=== PATIENT | male | born 1930 | race Caucasian/White ===

== ENCOUNTER 2018-12-02 14:30 | Inpatient (IN) ==
[2018-12-02 14:57] LABS: BASO# 0.05 X1000 (0.0-0.2); BASO% 0.6 % (0.0-0.8); EOS# 0.19 X1000 (0.0-0.7); EOS% 2.4 % (0.0-10.0); HEMATOCRIT 31.3 % (42.0-52.0); HEMOGLOBIN 10.1 g/dL (14.0-18.0); IMM GRAN# 0.13 X1000 (0.0-0.04); IMM GRAN% 1.6 % (0.0-0.5); LYMPH# 1.52 X1000 (1.2-3.4); LYMPH% 18.8 % (20.5-51.1); MCH 29.1 PG (27-31); MCHC 32.3 g/dL (33-37); MCV 90.2 FL (81-99); MONO# 1.34 X1000 (0.11-0.59); MONO% 16.6 % (1.7-9.3); MPV 11.3 FL (7.4-10.4); NEUT# 4.85 X1000 (1.4-6.5); PLT 252 X1000 (130-400); RBC 3.47 XMIL (4.7-6.1); RDW 13.4 % (11.5-14.5); WBC 8.08 X1000 (4.8-10.8)
--- NOTE | 2018-12-02 15:05 | Diag Imaging Result Doc PS360 ---
EXAM: CT HEAD W/O CONTRAST HISTORY: possible CVA TECHNIQUE: CT head without contrast COMPARISON: 05/26/2018 FINDINGS: No parenchymal hemorrhage. No epidural or subdural hematoma. No subarachnoid hemorrhage. There is mild atrophy with chronic microvascular ischemic changes. No mass identified on this noncontrasted exam. No hydrocephalus. No sinus opacification. IMPRESSION: No hemorrhage. Mild atrophy with chronic microvascular ischemic changes. This exam was performed using automated exposure control, adjustment of mA or kV according to patient size, and/or use of iterative reconstruction technique. Electronically signed by Mele Parrish 12/02/2018 3:02 PM
--- NOTE | 2018-12-02 15:06 | Diag Imaging Result Doc PS360 ---
EXAM: CHEST-1 VIEW HISTORY: AMS work up TECHNIQUE: Chest single view COMPARISON: 05/26/2018 FINDINGS: The lungs are well expanded. The heart is not enlarged. Sternal wires are present. The vessels are not distended. There are no infiltrates. Tiny left pleural effusion versus pleural thickening. There is a calcified granuloma in the right costophrenic angle. IMPRESSION: No significant interval change. Electronically signed by Mele Parrish 12/02/2018 3:04 PM
[2018-12-02 15:21] LABS: ALBUMIN 3.4 g/dL (3.5-5.0); CALCIUM 9.1 mg/dL (8.8-10.2); CREATININE 3.1 mg/dL (0.7-1.2); POTASSIUM 4.6 mmol/L (3.5-5.1); TOTAL BILIRUBIN 0.4 mg/dL (0.20-1.00); TOTAL PROTEIN 6.1 g/dL (6.3-8.3)
[2018-12-02 15:26] LABS: INR 0.96; PROTIME 13.3 Seconds (11.0-16.0)
[2018-12-02 15:27] LABS: PTT 35.7 Seconds (22.3-41.8)
[2018-12-02 16:53] LABS: BILIRUBIN URINE NEGATIVE (NEGATIVE); BLOOD URINE NEGATIVE (NEGATIVE); GLUCOSE URINE NEGATIVE (NEGATIVE); KETONE URINE TRACE mg/dL (NEGATIVE); LEUKOCYTES URINE TRACE (NEGATIVE); NITRITE URINE NEGATIVE (NEGATIVE); PROTEIN URINE NEGATIVE (NEGATIVE); UROBILINOGEN URINE NORMAL
[2018-12-02 16:54] LABS: CLARITY CLEAR (CLEAR); COLOR YELLOW
[2018-12-02 17:01] LABS: URINE SOURCE CLEAN CATCH
[2018-12-02 17:03] LABS: URINE RBC <10 /HPF (<10); URINE WBC <10 /HPF (<10)
[2018-12-02 17:04] LABS: URINE BACTERIA 2+ /HFP; URINE CAST NONE SEEN /LPF; URINE CRYSTAL NONE SEEN /HPF; URINE EPITHELIAL CELLS >10 /HPF (<10); URINE YEAST NONE SEEN /HPF
--- NOTE | 2018-12-02 17:06 | EKG Report ---
Test Performed on : 12/02/2018 3:23:33 PM Test Reason : AMS Blood Pressure : / mmHG Vent. Rate : 065 BPM Atrial Rate : 065 BPM P-R Int : 184 ms QRS Dur : 132 ms QT Int : 456 ms P-R-T Axes : -17 071 -05 degrees QTc Int : 474 ms Normal sinus rhythm. 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
[2018-12-02 17:14] LABS: UR AMPHETAMINES QUAL NONE DETECTED (NONE DETECT); UR BARBITUATES QUAL NONE DETECTED (NONE DETECT); UR BENZODIAZEPIN QUAL NONE DETECTED (NONE DETECT); UR CANNABINOIDS QUAL NONE DETECTED (NONE DETECT); UR COCAINE QUAL NONE DETECTED (NONE DETECT); UR METHADONE QUAL NONE DETECTED (NONE DETECT); UR METHAMPHETAMINE QUAL NONE DETECTED (NONE DETECT); UR OPIATES QUAL PRESUMPTIVE POSITIVE (NONE DETECT); UR OXYCODONE QUAL NONE DETECTED (NONE DETECT); UR PCP QUAL NONE DETECTED (NONE DETECT); UR PROPOXYPHENE QUAL NONE DETECTED (NONE DETECT); UR TCA QUAL NONE DETECTED (NONE DETECT)
--- NOTE | 2018-12-02 18:14 | PROVIDER DOCUMENTATION ---
This chart was entered by Alexa Boss Scribe, acting as scribe for Candi Amaya MD. HPI-Neurological Disorder - General Chief Complaint: Altered Mental Status Stated Complaint: CONFUSED Time Seen by Provider: 12/02/18 14:38 Source: patient, family (son) Unable to obtain history due to:: altered Allergies/Adverse Reactions: Patient Allergies Allergy/AdvReac Type Severity Reaction Status Date / Time No Known Allergies Allergy Verified 05/26/18 10:46 Home Medications: Home Medication List Medication Instructions Recorded Confirmed Last Taken Type Febuxostat [Uloric] 40 mg PO DAILY 03/24/13 05/26/18 03/28/14 08:00 History Folic Acid/Multivits-Min [Macular 0.5 mg PO DAILY 03/24/13 05/26/18 03/01/14 08: 00 History Vitamin Tablet] Mv,Fe/FA/D3/Om-3/Dha/Epa/Fish 1 each PO DAILY 03/24/13 05/26/18 03/01/14 08:00 History [Prorenal Qd Softgel] Nebivolol [Bystolic] 5 mg PO DAILY 03/24/13 05/26/18 03/28/14 08:00 History Prednisone 10 mg PO DAILY 03/24/13 05/26/18 03/28/14 08:00 History Amlodipine Besylate 10 mg PO DAILY 05/26/18 05/26/18 Unknown History Aspirin [Aspir-Low] 81 mg PO DAILY 05/26/18 05/26/18 Unknown History Cyanocobalamin/Folic Acid [Vitamin 1 each PO DAILY 05/26/18 05/26/18 Unknown History C00-Goiir Acid Tablet] Furosemide [Lasix] 40 mg PO DAILY 05/26/18 05/26/18 Unknown History Iron,Carbonyl [Iron] 65 mg PO Q3DAYS 05/26/18 05/26/18 Unknown History Triamcinolone 0.1% Cr [Kenalog 1 applicatn TOP TID 05/26/18 05/26/18 Unknown History 0.1% Cream] - History of Present Illness-Neuro Nature of Presenting Problem: 88 yowm presents to the ed with c/o confusion for intermittently for 1 week. pt has had moments of unstable gait and needing a walker at times in this week as well. pt on exam is tearful and anxious. pt denies VERDIN, pt has no facial droop, generalized weakness and can follow all commands on exam Severity: reports: mild Onset/Duration: reports: 1 week ago Timing: reports: intermittent Context: reports: other (confusion). denies: impaired speech, paresthesia, facial droop Character of Altered Mental Status: reports: disoriented, confused, agitated, trouble concentrating Any recent trauma/injury?: reports: none Character of Deficits: reports: new weakness, decreased ability to walk (has to use a walker at times). denies: altered sensation, impaired speech, impaired swallowing, decreased ability to stand New weakness or altered sensation location:: reports: general (diffuse) Cognitive Baseline: alert, oriented x3 Gait Baseline: walks without assistance Associated Symptoms: reports: decreased ability to walk or stand, confusion, trouble walking, weakness. denies: short of breath, headache, dizziness, fever/ chills, nausea, numbness in legs/feet, paresthesia, seizures, sleepy, slurred speech Similar Symptoms Previously?: No Recently seen or treated by another doctor?: No Review of Systems - Adult - REVIEW OF SYSTEMS - ADULT ROS:: ROS per family (son at bedside) Constitutional: reports: no symptoms reported Eyes: denies: blurred vision, double vision Ears, Nose, Mouth & Throat: reports: no symptoms reported Cardiovascular: denies: chest pain, palpitations Respiratory: denies: cough, shortness of breath, wheezing Gastrointestinal: denies: abdominal pain, diarrhea, nausea, vomiting Genitourinary: reports: no symptoms reported Musculoskeletal: denies: back pain, neck pain Integumentary: reports: no symptoms reported Neurological: reports: see HPI, other (confusion). denies: dizziness/vertigo, headache/migraines, loss of balance, numbness, paresthesia, slurred speech, syncope, tremors Psychiatric: reports: no symptoms reported Endocrine: reports: no symptoms reported Hematologic/Lymphatic: reports: no symptoms reported Allergic/Immunologic: reports: no symptoms reported All Other Systems: Reviewed and Negative Past History - Adult - PAST MEDICAL HISTORY-ADULT Review of Records: reports: Old Records Reviewed, Nursing Assessment Review, Medications Reviewed, Social history reviewed & non-contributory. Major Childhood Illnesses: reports: denies history Cardiovascular: reports: CAD, HTN Respiratory: reports: denies history Gastrointestinal: reports: denies history Genitourinary: reports: kidney disease, prostate cancer Musculoskeletal: reports: denies history Neurological: reports: denies history Psychiatric: reports: denies history Endocrine/Immune: reports: denies history Other Conditions: reports: denies history - PRIOR SURGERIES/PROCEDURES Surgical/Procedure History: reports: CABG, orthopedic (extremity) (bilateral shoulder,elbow), other (vasectomy,TURP, kidney sx) - IMMUNIZATION STATUS Childhood Immunizations: See Nurse Assessment Flu Vaccine: See Nurse Assessment - FAMILY HISTORY Family History: reviewed, not pertinent - SOCIAL HISTORY Smoking: quit greater than 1 year Substance Use: alcohol Alcohol Use Frequency: occasionally Number of drinks per typical drinking period:: 1 drink Living Situation: family Physical Exam- Neurological - Physical Exam-Neuro Initial Vital Signs Reviewed: Yes General Appearance: alert, mild distress, anxious, slow to respond Eye Exam: bilateral eye: normal inspection, PERRL, EOMI HENMT: moist mucous membranes, normal ENT inspection Head Injury: no evidence of injury Neck: non-tender, full range of motion, supple, normal inspection Respiratory: chest non-tender, lungs clear, normal breath sounds Cardiovascular: normal peripheral pulses, regular rate, rhythm Abdominal Exam: normal bowel sounds, non tender, soft Lymphatic: no adenopathy Extremity: normal inspection, normal capillary refill, pelvis stable. 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 negative: facial droop, facial paresthesias, facial weakness, gaze palsy Coordination/Gait: abnormal gait Motor/Sensory: no motor deficit, no sensory deficit, no pronator drift, other ( generalized weakness) Neurologic: motor weakness (generalized). negative: facial droop, focal weakness Integumentary: normal color, normal turgor, warm/dry, erythema (BUE) Psych/Mental Status: normal thought content, normal thought process, oriented x 3, anxious, tearful - Glascow Coma Scale Best Eye Response: (4) open spontaneously Best Verbal Response: (5) oriented Best Motor Response: (6) obeys commands Total Glascow Score: 15 Progress - PLAN OF CARE/RESULTS Progress/Plan/Lab Results: Vital Signs - 8 hr 12/02/18 14:32 12/02/18 15:23 12/02/18 15:29 Temperature 98.1 F Pulse Rate 79 65 63 Respiratory Rate 17 20 23 Blood Pressure 145/37 111/48 111/48 O2 Sat by Pulse Oximetry 98 100 91 L Laboratory Results - last 24 hr 12/02/18 12/02/18 12/02/18 14:38 14:38 14:38 WBC 8.08 RBC 3.47 L Hgb 10.1 L Hct 31.3 L MCV 90.2 MCH 29.1 MCHC 32.3 L RDW Std Deviation 13.4 Plt Count 252 MPV 11.3 H Immature Gran % (Auto) 1.6 H Neut % (Auto) 60.0 Lymph % (Auto) 18.8 L [place] % (Auto) 16.6 H Eos % (Auto) 2.4 Baso % (Auto) 0.6 Immature Gran # (Auto) 0.13 H Neut # (Auto) 4.85 Lymph # (Auto) 1.52 [place] # (Auto) 1.34 H Eos # (Auto) 0.19 Baso # (Auto) 0.05 PT INR PTT (Actin FS) Sodium 141 Potassium 4.6 Chloride 103 Carbon Dioxide 22 L Anion Gap 16 BUN 69 H Creatinine 3.1 H Estimated GFR/1.73 m2 19 BUN/Creatinine Ratio 22 Glucose 96 POC Glucose Calculated Osmolality 301 Calcium 9.1 Total Bilirubin 0.40 AST 20 ALT 14 Alkaline Phosphatase 87 Troponin T 0.114 H Total Protein 6.1 L Albumin 3.4 L Globulin 3.0 Albumin/Globulin Ratio 1.0 Urine Source Urine Color Urine Clarity Urine pH Ur Specific [place] Urine Protein Urine Ketones Urine Blood Urine Nitrite Urine Bilirubin Urine Urobilinogen Urine Microscopic RBC Urine WBC Urine Microscopic WBC Ur Epithelial Cells Urine Crystals Urine Bacteria Urine Casts Urine Yeast Urine Glucose Urine Opiates Screen Ur Oxycodone Screen Urine Methadone Screen U Propoxyphene Qual Ur Barbituates Screen Ur Tricyclics Screen Ur Phencyclidine Scrn Ur Amphetamines Screen U Methamphetamines Scrn U Benzodiazepines Scrn Urine Cocaine Screen U Cannabinoids Screen 12/02/18 12/02/18 12/02/18 14:38 15:27 16:30 WBC RBC Hgb Hct MCV MCH MCHC RDW Std Deviation Plt Count MPV Immature Gran % (Auto) Neut % (Auto) Lymph % (Auto) [place] % (Auto) Eos % (Auto) Baso % (Auto) Immature Gran # (Auto) Neut # (Auto) Lymph # (Auto) [place] # (Auto) Eos # (Auto) Baso # (Auto) PT 13.3 INR 0.96 PTT (Actin FS) 35.7 Sodium Potassium Chloride Carbon Dioxide Anion Gap BUN Creatinine Estimated GFR/1.73 m2 BUN/Creatinine Ratio Glucose POC Glucose 95 Calculated Osmolality Calcium Total Bilirubin AST ALT Alkaline Phosphatase Troponin T Total Protein Albumin Globulin Albumin/Globulin Ratio Urine Source CLEAN CATCH Urine Color YELLOW Urine Clarity CLEAR Urine pH 5.0 Ur Specific [place] 1.010 Urine Protein NEGATIVE Urine Ketones TRACE Urine Blood NEGATIVE Urine Nitrite NEGATIVE Urine Bilirubin NEGATIVE Urine Urobilinogen NORMAL Urine Microscopic RBC <10 Urine WBC TRACE A Urine Microscopic WBC <10 Ur Epithelial Cells >10 A Urine Crystals NONE SEEN Urine Bacteria 2+ Urine Casts NONE SEEN Urine Yeast NONE SEEN Urine Glucose NEGATIVE Urine Opiates Screen Ur Oxycodone Screen Urine Methadone Screen U Propoxyphene Qual Ur Barbituates Screen Ur Tricyclics Screen Ur Phencyclidine Scrn Ur Amphetamines Screen U Methamphetamines Scrn U Benzodiazepines Scrn Urine Cocaine Screen U Cannabinoids Screen 12/02/18 16:30 WBC RBC Hgb Hct MCV MCH MCHC RDW Std Deviation Plt Count MPV Immature Gran % (Auto) Neut % (Auto) Lymph % (Auto) [place] % (Auto) Eos % (Auto) Baso % (Auto) Immature Gran # (Auto) Neut # (Auto) Lymph # (Auto) [place] # (Auto) Eos # (Auto) Baso # (Auto) PT INR PTT (Actin FS) Sodium Potassium Chloride Carbon Dioxide Anion Gap BUN Creatinine Estimated GFR/1.73 m2 BUN/Creatinine Ratio Glucose POC Glucose Calculated Osmolality Calcium Total Bilirubin AST ALT Alkaline Phosphatase Troponin T Total Protein Albumin Globulin Albumin/Globulin Ratio Urine Source Urine Color Urine Clarity Urine pH Ur Specific [place] Urine Protein Urine Ketones Urine Blood Urine Nitrite Urine Bilirubin Urine Urobilinogen Urine Microscopic RBC Urine WBC Urine Microscopic WBC Ur Epithelial Cells Urine Crystals Urine Bacteria Urine Casts Urine Yeast Urine Glucose Urine Opiates Screen PRESUMPTIVE POSITIVE A Ur Oxycodone Screen NONE DETECTED Urine Methadone Screen NONE DETECTED U Propoxyphene Qual NONE DETECTED Ur Barbituates Screen NONE DETECTED Ur Tricyclics Screen NONE DETECTED Ur Phencyclidine Scrn NONE DETECTED Ur Amphetamines Screen NONE DETECTED U Methamphetamines Scrn NONE DETECTED U Benzodiazepines Scrn NONE DETECTED Urine Cocaine Screen NONE DETECTED U Cannabinoids Screen NONE DETECTED Orders Category Date Time Status Cardiac Monitoring DIRECTED Care 12/02/18 14:39 Active Finger Stick Blood Sugar (ED) DIRECTED Care 12/02/18 14:39 Active Misc. NRSG Communication Order DIRECTED Care 12/02/18 14:39 Active Saline Loc NOW Care 12/02/18 14:39 Active CHEST-1 VIEW [RAD] Stat Exams 12/02/18 14:[address] HEAD W/O CONTRAST [CT] Stat Exams 12/02/18 14:39 Completed CBC WITH ELECTRONIC DIFF [HEME] Stat Lab 12/02/18 14:38 Completed COMPREHENSIVE METABOLIC PANEL [CHEM] Stat Lab 12/02/18 14:38 Completed PROTIME WITH INR [COAG] Stat Lab 12/02/18 14:38 Completed PTT [COAG] Stat Lab 12/02/18 14:38 Completed TROPONIN T Stat Lab 12/02/18 14:[address] W/POSS RFLX CULT [URINALYSIS] Stat Lab 12/02/18 16:30 Completed URINE CULTURE [RM] Routine Lab 12/02/18 17:[address] S[address]EN [address] Stat Lab 12/02/18 16:30 Completed EKG [EKG] Stat Ther 12/02/18 14:39 Draft Transfer/Admit Order [TRANSFER] Routine Transfer 12/02/18 16:49 Ordered Result Diagrams: 12/02/18 14:38 12/02/18 14:38 - REASSESSMENT Reassessment #1 Time Reassessed: 14:49 (pt has no confusion on exam but son at bedside sts last week has had many moments of confusion and weakness. son sts it comes and goes) Status: unchanged Reassessment #2 Time Reassessed: 15:28 Status: improving Reassessment Comment: resting in bed Reassessment #3 Time Reassessed: 16:15 (dr amaya at bedside) Status: unchanged - EKG 1 Time of EKG reading by physician:: 15:23 EKG Read and Signed by:: Candi Amaya EKG Interpretation (*Must complete 3 of following elements*): Abnormal Rate: 65 Rhythm: nsr [place]: normal QRS: RBB PA Interval: normal ST Wave: normal Comments: infwerior infarct, age undetermined - XRAY 2 XRAY: Bilateral XRAY Study: Chest (EXAM: CHEST-1 VIEW HISTORY: AMS work up TECHNIQUE: Chest single view COMPARISON: 05/26/2018 FINDINGS: The lungs are well expanded. The heart is not enlarged. Sternal wires are present. The vessels are not distended. There are no infiltrates. Tiny left pleural effusion versus pleural thickening. There is a calcified granuloma in the right costophrenic angle. IMPRESSION: No significant interval change. Electronically signed by Mele Parrish 12/02/2018 3:04 PM 12/02/18 1504 Interpreting Physician: Mele Parrish MD Dictated Date/Time: 12/02/18 1502 cc: Candi Amaya MD; Fransico Stover MD) - CT/MRI 1 CT Study: Head (EXAM: CT HEAD W/O CONTRAST HISTORY: possible CVA TECHNIQUE : CT head without contrast COMPARISON: 05/26/2018 FINDINGS: No parenchymal hemorrhage. No epidural or subdural hematoma. No subarachnoid hemorrhage. There is mild atrophy with chronic microvascular ischemic changes. No mass identified on this noncontrasted exam. No hydrocephalus. No sinus opacification. IMPRESSION: No hemorrhage. Mild atrophy with chronic microvascular ischemic changes. This exam was performed using automated exposure control, adjustment of mA or kV according to patient size, and/or use of iterative reconstruction technique. Electronically signed by Mele Parrish 12/02/2018 3:02 PM 1502 Interpreting Physician: Mele Parrish MD Dictated Date/Time: 12/02/18 1459 cc: Candi Amaya MD; Fransico Stover MD) - CONSULTS/PCP/HOSPITALIST Notification #1 *Consult/PCP/Hospitalist*: hospitalist dr quiros Time Discussed: 16:58 Reason/Comments: dr quiros is at bedside #2 Consult: dr stover Time Discussed: 17:34 Reason/Comments: confusion and weakness Consult Disposition: Admit Departure - Departure Date of Disposition Decision: 12/02/18 Time of Disposition Decision: 16:18 DIAGNOSIS: Renal insufficiency syndrome, Dehydration, Elevated troponin Altered mental state Qualifiers: Altered mental status type: unspecified Qualified Code(s): R41.82 - Altered mental status, unspecified Disposition: ADMITTED INPATIENT 09 Certified Medical Emergency: Emergent Condition: Stable Referrals and Follow-Ups: Fransico Stover MD [Primary Care Provider] - - Critical Care Note This patient required my direct & personal management of CC.: Yes Total Time (mins): 38 Critical Care Statement: This patient required my direct personal management to treat or rule out processes, the absence of which, could potentiallly result in sudden, clinically significant life or limb threatening deterioration. Attestation - Physician/ HERMELINDA Attestation Patient care was provided by Advanced Practice Provider:: No The physician spent face to face time with patient:: Yes Advanced Practice Provider documentation review:: Supervising physician onsite and consulted in the evaluation and care of this patient. The physician did have a face to face encounter with the patient. 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) Motor Function-right arm: 0-Normal Motor Function-left le-Normal Motor Function-right le-Normal Limb Ataxia(pdtayr-fakh-aeghnr, or heel to reeves): 0-No Ataxia Sensory(pin prick to face,arms,trunk,legs-compare side/side): 0-No Ataxia Best Language(name item/read sentence.Ex-Down to Earth): 0-No Aphasia Dysarthria(Pt read words or say words Ex.Mama,Tip-Top,Thanks: 0-Normal Articulation Extinction and Inattention: 0-Normal NIH Total Score: 0 This chart was documented by the indicated scribe, (Alexa Boss Scribe) and accurately reflects the services I performed and decisions made by me, Candi Amaya MD, as attested by the provider's signature.
[2018-12-02] MEDS ORDERED: VANCOMYCIN 1 GM/NS 1 GM/250 ML IVPB IV ONE (18:22)
[2018-12-02] MEDS ORDERED: FLU VACCINE IM ONE (22:18)
[2018-12-03] MEDS ORDERED: LASIX PO SCH (09:00)
[2018-12-03] MEDS: ULORIC PO SCH (09:47)
[2018-12-03] MEDS: BYSTOLIC PO SCH (09:48)
[2018-12-03] MEDS: PREDNISONE PO SCH (09:48)
[2018-12-03] MEDS: ASPIRIN EC PO SCH (09:48)
[2018-12-03] MEDS: TYLENOL WITH CODEINE #3 PO PRN ×2 (09:48→23:27)
[2018-12-03] MEDS: NORVASC PO SCH (09:48)
[2018-12-03] MEDS ORDERED: NS 500 ML IV SCH (14:00)
[2018-12-03 16:37] LABS: HEMATOCRIT 30.4 % (42.0-52.0); HEMOGLOBIN 9.8 g/dL (14.0-18.0); MCH 29.4 PG (27-31); MCHC 32.2 g/dL (33-37); MCV 91.3 FL (81-99); MPV 10.8 FL (7.4-10.4); RBC 3.33 XMIL (4.7-6.1); RDW 13.4 % (11.5-14.5); WBC 6.1 X1000 (4.8-10.8)
[2018-12-03 17:07] LABS: CALCIUM 8.8 mg/dL (8.8-10.2); CREATININE 2.4 mg/dL (0.7-1.2); POTASSIUM 4.7 mmol/L (3.5-5.1)
--- NOTE | 2018-12-03 23:00 | PROGRESS NOTE ---
DATE: 12/03/2018 SUBJECTIVE: The patient states that he feels much better today. He does not feel that he has been confused. He has actually stood at the bedside up today without assistance and he did state that his appetite was back and he was able to eat. OBJECTIVE: Vital Signs: Blood pressure is 138/51 with a heart rate of 58, respirations 20, temperature 97.6 degrees oral with room air saturations 98-99. Cardiovascular: Regular rate and rhythm. S1 and S2 are appreciated. Pulmonary: Breath sounds are clear with no increased work of breathing. Gastrointestinal: Abdomen is soft, nontender, nondistended with bowel sounds in all 4 quadrants. Neurologic: He is alert. He is oriented. He is cooperative. He has 5/5 strength to bilateral arms and legs. LABS: WBC is 6.1 with hemoglobin 9.8, hematocrit 30.4 and platelets of 240,000. Sodium is 136, potassium 4.7, BUN 59, creatinine 2.4 with a glucose of 222. Troponin was 0.101. EKG revealed a right bundle branch block at a rate of 65. ASSESSMENT AND PLAN: 1. Acute kidney injury on chronic kidney disease. Looks like the patient has a baseline creatinine of 1.8 to 1.9 over the last 2 years. We will continue with gentle IV hydration, give him saline at 100 mL an hour. We will hold his Lasix and Uloric and any other renal toxic medications. We will renal dose as appropriate. 2. Dehydration. At present, the patient is -280. We will as stated above start saline at 100 mL/h. 3. Elevated troponins. This is very likely secondary to his acute kidney injury. The patient has had no chest pain. I did discuss the patient with Dr. Jacob Samano in Cardiology. We will get an another set of cardiacs in the morning along with an EKG. We will get an echocardiogram in the morning. Consult Cardiology. If the patient has chest pain tonight, we will get stat cardiacs, get an EKG and nurses will call Dr. Lovell. 4. History of hypertension. Blood pressures have been in the 120-140/40-50 range. We will continue his amlodipine and his Bystolic. 5. History of coronary artery disease. As stated above, we will continue his aspirin. We will continue neuro checks. Further treatments pending hospital course. Dictated by MEHDI Ventura for Ashwin Damon MD This chart was documented by, MEHDI Ventura and accurately reflects the services performed, treatment plan and medical decisions as attested by the providers signature Ashwin Damon MD. cc: MEHDI Ventura MD Michael Putman, MD
[2018-12-04 06:55] LABS: BASO# 0.02 X1000 (0.0-0.2); BASO% 0.3 % (0.0-0.8); EOS# 0.09 X1000 (0.0-0.7); EOS% 1.4 % (0.0-10.0); HEMATOCRIT 29.3 % (42.0-52.0); HEMOGLOBIN 9.3 g/dL (14.0-18.0); IMM GRAN% 1.5 % (0.0-0.5); LYMPH# 0.72 X1000 (1.2-3.4); LYMPH% 10.9 % (20.5-51.1); MCH 28.6 PG (27-31); MCHC 31.7 g/dL (33-37); MCV 90.2 FL (81-99); MONO# 0.92 X1000 (0.11-0.59); MPV 11.1 FL (7.4-10.4); NEUT# 4.73 X1000 (1.4-6.5); NEUT% 71.9 % (42.2-75.2); PLT 268 X1000 (130-400); RBC 3.25 XMIL (4.7-6.1); RDW 13.3 % (11.5-14.5); WBC 6.58 X1000 (4.8-10.8)
[2018-12-04 07:18] LABS: CALCIUM 8.8 mg/dL (8.8-10.2); CREATININE 2.1 mg/dL (0.7-1.2); POTASSIUM 3.9 mmol/L (3.5-5.1); TOTAL BILIRUBIN 0.3 mg/dL (0.20-1.00)
[2018-12-04] MEDS: NORVASC PO SCH (09:45)
[2018-12-04] MEDS: BYSTOLIC PO SCH (09:45)
[2018-12-04] MEDS: PREDNISONE PO SCH (09:45)
[2018-12-04] MEDS: ULORIC PO SCH (09:45)
[2018-12-04] MEDS: ASPIRIN EC PO SCH (09:45)
[2018-12-04] MEDS ORDERED: VANCOMYCIN 1 GM/NS 1 GM/250 ML IVPB IV ONE (16:00)
[2018-12-04 16:01] VITALS: BP 137/43
--- NOTE | 2018-12-04 17:08 | HISTORY AND PHYSICAL ---
HISTORY OF PRESENT ILLNESS: He was admitted on 12/02/2018 through the emergency room because of a confused issue. He has no dementia but has been somewhat confused lately as far as where he is. He is a regular patient of mine. He is on Uloric, Bystolic, prednisone, amlodipine, aspirin, furosemide 40 daily, with supplemental B12. The patient's son brought him in. He has been confused off and on for a week. He has had some movement problems with an unsteady gait, needing a walker at times as well. The patient on exam was anxious and tearful. Denies headache. No facial droop. Generalized weakness. Can follow all commands on exam. This has been going on for a week. He has trouble concentrating. No focal neurological deficits. He has generalized weakness, and the walker is a new thing for him. He denies any altered sensation, impaired speech or swallowing disorders. He is usually oriented x3. Walks without assistance. He denies any shortness of breath or headaches, fevers, chills, nausea, symptoms of a fever. He was admitted for confusion. REVIEW OF SYSTEMS: The patient's son is adding most of the details. He denies change in significant weight gain, weight loss, fever or chills. Eyes: The patient has not complained any of visual issues. Ears, nose and throat: No sinusitis, pharyngitis or otitis. Cardiovascular: He denies any chest pain or palpitations. He has some chronic edema. He has chronic renal failure. Respiratory: He denies cough, shortness of breath or wheezing. Gastrointestinal: Denies abdominal pain, diarrhea, nausea, vomiting, melena, hematochezia. Genitourinary: No dysuria, hematuria, polyuria or pyuria. Musculoskeletal: Denies back pain or neck pain. He frequently has gout but is not afflicted with this at this time. Skin: He has senile purpura only. Neurologic: Confused but no focal deficits identified. Psychiatric: No symptoms of same. Endocrine: No history of any impaired temperature sensation. Hematologic: No bleeding or clotting disorders. Allergies: No asthma, wheezing, hay fever, eczema. PAST MEDICAL HISTORY: The patient has hypertension, status post coronary artery bypass graft. He has a history of prostate cancer. History of kidney disease with chronic creatinines in the high 2's and low 3's. He sees Dr. Lozano in [place] as his urologist. PAST SURGICAL HISTORY: He is status post CABG. He has had shoulder surgery bilaterally for an ulnar release. He has had a vasectomy, TURP and kidney symptoms, no kidney surgery though. SOCIAL HISTORY: He lives with his . He is a distant ex-smoker. He drinks liquor occasionally, but he typically only drinks one drink at that. PHYSICAL EXAMINATION: VITAL SIGNS: Temperature was 98, pulse 63, respiratory rate 23, blood pressure 111/48, O2 saturation was 91%. HEENT: Head was normocephalic. Eyes, ears, nose and throat were negative. Head with no sign of injury. NECK: Supple. Bounding carotids without thyromegaly or lymphadenopathy. Midline trachea. RESPIRATORY: Chest nontender. Bilaterally clear breath sounds. CARDIOVASCULAR: Normal peripheral pulses. Regular rate and rhythm. ABDOMEN: Normal bowel sounds. Soft. No hepatosplenomegaly. No CVA tenderness. EXTREMITIES: Negative for cyanosis, clubbing or edema. He had no lymphadenopathy. CUSTOMS AND BORDER PROTECTION INSPECTOR: He had no neurologic deficits other than a bit unsteady on his gait. He was felt to have a Lizeth score of 15. DIAGNOSTIC DATA: They did labs which included a white count of 8808, hematocrit 31.3, platelet count 252. BUN was 69, creatinine 3.1, sodium 141, potassium 4.6, chloride 103, CO2 is 22. Estimated GFR was 19. BUN to creatinine ratio was 22. Glucose was 96. Calculated osmolality was 301. Calcium 9.1. Total bilateral 0.4, AST of 20, ALT of 14, alkaline phosphatase 187. His troponin was elevated at 0.114 which is compatible with his renal disease. Total protein 6.1, albumin 3.4, globulin 3. His PT was 35.7. Random glucose 95. Urine with 1.010 specific gravity, pH of 5, lots of epithelial cells, 2+ bacteria, otherwise negative. Presumably contaminated urine. He was positive for opiate screening. He is on opiates. It was felt that we would put him in, rehydrate him and see if he responded. Chest with no significant interval change. EKG was abnormal. He had a heart rate of 65 of NSR. [place] normal. He had a right bundle branch block. ST segments were otherwise negative. He was admitted for rehydration and follow his elevated troponin and renal insufficiency. cc: Fransico Stover MD
--- NOTE | 2018-12-04 17:48 | PROGRESS NOTE ---
HISTORY OF PRESENT ILLNESS: This is an 88-year-old patient of mine with hypertension, chronic renal failure and history of recurrent gout and chronic anemia who had been recently hospitalized because of some intermittent spells of confusion not knowing where he particularly was. Today, his laboratory shows a white count of 6,580, hematocrit 29.3, platelet count 268. Differential is relatively normal. His metabolic profile--sodium 141, potassium 3.9, chloride 105, CO2 23, BUN 57, creatinine 2.2, estimated GFR 30, BUN and creatinine ratio is 27. Glucose 116, calcium 8.8, total bilirubin 0.3, AST 19, ALT 12, alk phos 73, CK 96, troponin is always elevated but now it is not elevated as much as before at 0.58. Albumin was 3, total protein 6. His clean catch urine has no growth. He recognizes me, recognizes that he is in the hospital. PHYSICAL EXAMINATION: Vital signs: Temperature 97.4, pulse 51, respiratory rate 18 and blood pressure 128/43. I talked to the pharmacy about giving him another dose of vancomycin to finish up treating what appeared to be a little bit of [erysipelas *]of the shins. DISPOSITION: We will discharge him to follow up in the office. cc: Fransico Stover MD MTDD
--- NOTE | 2018-12-04 21:21 | CONSULTATION ---
DATE OF CONSULTATION: 12/04/2018 IMPRESSION: 1. Slightly elevated troponins with no significant rise or fall on serial values. I suspect this is very much related to renal dysfunction as he has had no chest pain and has had no acute changes on ECG. 2. Recent confusion which seems to have improved. 3. Acute on chronic renal dysfunction. 4. Atherosclerotic coronary disease with history of previous coronary bypass grafting, aortic valve replacement with bioprosthesis. 5. Hypertension. 6. Prostate cancer. RECOMMENDATIONS: 1. Echocardiography. 2. Continue medical management of patient's coronary atherosclerosis unless clear evidence of coronary instability. Current slight elevation in troponins is likely related to patient's renal dysfunction. Given his age, it would be best to manage him medically unless he has compelling symptoms to pursue invasive evaluation that occur in the face of medical management. HISTORY: This 88-year-old white male with past history of atherosclerotic coronary disease, previous coronary bypass grafting with aortic valve replacement with bioprosthesis, chronic kidney disease, and gout was admitted recently with confusion. He is felt to be dehydrated and he is receiving intravenous hydration. He manifests evidence of acute on chronic renal dysfunction. Serial troponins have been obtained and are slightly elevated but do not demonstrate a rise and fall. He has had no chest pain whatsoever. He relates he is feeling better today. PAST MEDICAL HISTORY: 1. Hypertension. 2. Atherosclerotic coronary disease and previous coronary bypass grafting with aortic valve replacement with bioprosthesis. 3. Gout. 4. Chronic kidney disease. PAST SURGICAL HISTORY: Also includes bilateral shoulder surgeries, bilateral elbow surgery, previous vasectomy, transurethral resection of prostate. ALLERGIES: No known drug allergies. MEDICATIONS PRIOR TO ADMISSION: As listed. SOCIAL HISTORY: He is and lives with his . He no longer smokes. FAMILY HISTORY: Positive for coronary disease. REVIEW OF SYSTEMS: Pulmonary: Negative. Gastrointestinal: Negative. Constitutional: Negative. Remainder review of systems negative/noncontributory with 14 total systems reviewed. PHYSICAL EXAMINATION: General: This is a pleasant, elderly white male in no distress. Vital signs: Blood pressure 137/43, heart rate 53 and regular, oxygen saturation 100% on room air. HEENT: Extraocular movements intact. Mucous membranes moist. Neck: Supple without jugular venous distention. There are no carotid bruits. Chest: Clear to auscultation bilaterally. Cardiac Exam: Reveals a regular rate and rhythm without appreciable murmur or gallop. Abdomen: Soft, nontender. Bowel sounds audible. Extremities: Without edema. Neurologic: Reveals him to be alert and fully oriented. Speech is fluent. Moves all 4 extremities equally well. 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 LABORATORY DATA: Includes a white blood cell count 6.58, hematocrit 29.3, hemoglobin 9.3, platelet count 268,000, sodium 141, potassium 3.9, chloride 105, carbon dioxide 23, BUN 57, creatinine 2.1, glucose 116. Initial troponin T 0.114, followup troponin T 0.098, 0.099, 0.101, and 0.058. cc: MD Fransico Cerda MD
--- NOTE | 2018-12-05 10:13 | ECHO REPORT ---
ORDER DATE: 12/04/2018 INTERPRETING PHYSICIAN: Dr. Damico CLINICAL INDICATIONS: Patient with possible myocardial infarction status post aortic valve replacement. M-MODE MEASUREMENTS: Left ventricle end diastole: 4.0 cm. Left ventricle end systole: 3.4 cm. Posterior wall: 1.3 cm. Interventricular septum: 1.3 cm. Left atrium: 4.1 cm. Aortic root: 4.4 cm. SUMMARY OF 2-DIMENSIONAL IMAGING: The left ventricular function is normal. Ejection fraction 60-65%. No wall motion abnormality is noted. Dense calcification of the mitral annulus. Color flow mapping indicates mild degree of regurgitation. Pulse wave Doppler of mitral inflow shows mild reversal of the E/A ratio. Ratio 0.86. Tissue Doppler of septal and lateral mitral annulus averages 4 cm per second. There is impaired left ventricular relaxation. The aortic valve is a prosthetic valve. Showed maximum gradient of 22 mmHg. Mean gradient is 11 mmHg. Indicates normal function. Tricuspid valve shows mild degree of regurgitation. Inferior vena cava at the upper limits of normal. Pulmonary pressure 44 mmHg. Pulmonic valve is normal. Color flow mapping unremarkable. There is no pericardial effusion, mass and no thrombus. SUMMARY: This study shows 1. Excellent left ventricular systolic function. 2. Normal LV function and prosthetic aortic valve. 3. Impaired left ventricular relaxation. 4. Mild degree of pulmonary hypertension. Clinical correction recommended. cc: MD Vandana Jama CRNP Michael Putman, MD
== END 2018-12-04 18:50 | disposition home or self-care (01) | DRG 684 ==
LOC: P.ED 14:30 → P.MEDSURG 20:54
PROVIDERS: ADMIT Internal Medicine; ATTEND Internal Medicine
CPT/HCPCS: 70450; 71010; 71045; 80048; 80053; 80101; 80104; 80301; 80305; 80307; 80324; 80345; 80346; 80353; 80358; 80361; 80365; 81001; 82550; 82948; 83992; 84484; 85025; 85027; 85610; 85730; 87088; 93005; 93306; 96365; 99285; 99291; A9270; C8929; G0431; G0434; G0477; G0479; G0480; J3370; J7040; J7506; J7512; Q9957; XXXXX

== ENCOUNTER 2018-12-08 13:04 | Inpatient (IN) ==
[2018-12-08 13:52] LABS: BASO# 0.15 X1000 (0.0-0.2); BASO% 1.6 % (0.0-0.8); EOS# 0.19 X1000 (0.0-0.7); EOS% 2.1 % (0.0-10.0); HEMATOCRIT 30.1 % (42.0-52.0); HEMOGLOBIN 9.7 g/dL (14.0-18.0); IMM GRAN# 0.59 X1000 (0.0-0.04); IMM GRAN% 6.4 % (0.0-0.5); LYMPH# 1.12 X1000 (1.2-3.4); LYMPH% 12.2 % (20.5-51.1); MCHC 32.2 g/dL (33-37); MCV 90.1 FL (81-99); MONO# 1.34 X1000 (0.11-0.59); MONO% 14.6 % (1.7-9.3); MPV 10.2 FL (7.4-10.4); NEUT# 5.79 X1000 (1.4-6.5); NEUT% 63.1 % (42.2-75.2); PLT 349 X1000 (130-400); RBC 3.34 XMIL (4.7-6.1); RDW 13.6 % (11.5-14.5); WBC 9.18 X1000 (4.8-10.8)
--- NOTE | 2018-12-08 13:57 | Diag Imaging Result Doc PS360 ---
EXAM: CHEST-PORTABLE HISTORY: ams TECHNIQUE: Chest single view COMPARISON: 12/02/2018 FINDINGS: Poor inspiratory effort. Sternal wires are present. The heart is borderline mildly prominent. No vascular distention. There is a granuloma in the right lung base. No change in the tiny left pleural effusion versus pleural thickening. The overall appearance of the chest is similar to the prior study. IMPRESSION: Stable exam. Electronically signed by Mele Parrish 12/08/2018 1:55 PM
[2018-12-08] MEDS ORDERED: TYLENOL PO ONE (14:04)
[2018-12-08 14:14] LABS: INR 0.99; PROTIME 13.6 Seconds (11.0-16.0); PTT 31.6 Seconds (22.3-41.8)
[2018-12-08 14:15] LABS: ALBUMIN 3.5 g/dL (3.5-5.0); CALCIUM 9.1 mg/dL (8.8-10.2); CREATININE 3.2 mg/dL (0.7-1.2); POTASSIUM 4.5 mmol/L (3.5-5.1); TOTAL BILIRUBIN 0.4 mg/dL (0.20-1.00); TOTAL PROTEIN 5.7 g/dL (6.3-8.3)
[2018-12-08 14:15] LABS: BE -2.4 mmoll (-3.0-3.0); BLOOD TYPE ARTERIAL; METHB 0.7 % (0.0-1.5); O2(CT) 15.5 mL/dL (15.0-23.0); PCO2(98.6) 32 mmHg (35-45); PO2(98.6) 76 mmHg (60-100); SAMPLE BLOOD; SAO2 95.7 % (95.0-100.0); THB 11.7 g/dL (11.5-17.4); pH(98.6) 7.43 (7.35-7.45)
[2018-12-08 14:26] LABS: ALLEN TEST NO; MODALITY ROOM AIR
[2018-12-08] MEDS ORDERED: NS 1,000 ML IV ONE ×2 (14:27→15:16)
--- NOTE | 2018-12-08 15:20 | EKG Report ---
Test Performed on : 12/08/2018 1:29:46 PM Test Reason : ams Blood Pressure : / mmHG Vent. Rate : 068 BPM Atrial Rate : 068 BPM P-R Int : 200 ms QRS Dur : 140 ms QT Int : 464 ms P-R-T Axes : -13 040 -14 degrees QTc Int : 493 ms Sinus rhythm. with frequent premature ventricular complexes. Right bundle branch block Inferior infarct (cited on or before 24-MAR-2013) Abnormal ECG When compared with ECG of 02-DEC-2018 15:23, (Unconfirmed) premature ventricular complexes. are now present Unconfirmed Result
[2018-12-08] MEDS ORDERED: TYLENOL WITH CODEINE #3 PO PRN (16:43)
[2018-12-08] MEDS ORDERED: NS 1,000 ML IV SCH (16:43)
--- NOTE | 2018-12-08 17:31 | HISTORY AND PHYSICAL ---
PRIMARY CARE PHYSICIAN: Dr. Fransico Stover. CHIEF COMPLAINT: Increased confusion. HISTORY OF PRESENTING ILLNESS: This is an 88-year-old male, who presents to [facility] ER with his son stating that he has had increased confusion since being discharged from the hospital on 12/04/2018, when he was also admitted for increased confusion and was found to be dehydrated. Today his laboratory data showed a BUN of 67 and a creatinine of 3.2. It is noted when he was discharged on the twenty-fifth his creatinine was 2.1. The son states that the patient continues to take his diuretic, but has not been eating or drinking. He is also noted to have a bump in his troponin at 0.120. It has been elevated in the past. Cardiology saw him on that last admission and documented that it was most likely trending up due to the related renal dysfunction due to the fact that he had no chest pain and no acute changes on his EKG. So, we will admit him to the hospital for further evaluation and treatment. PAST MEDICAL HISTORY: Hypertension, prostate cancer, chronic kidney disease in which he sees Dr. Lozano in [place] as his urologist. PAST SURGICAL HISTORY: He has had a CABG, shoulder surgery bilaterally, and ulnar release, a vasectomy and TURP. FAMILY HISTORY: Reviewed and noncontributory. SOCIAL HISTORY: Currently lives with his . He is an ex smoker. Drinks liquor occasionally and denies any illicit drug use. ALLERGIES: He has no known drug allergies. HOME MEDICATIONS: He takes Tylenol #3 one p.o. q. 8 hours p.r.n., amlodipine 10 mg p.o. daily, aspirin 81 mg p.o. daily, Uloric 40 mg p.o. daily will be held, Lasix 40 mg p.o. daily will be held, Bystolic 20 mg p.o. daily and prednisone 10 mg p.o. daily. LABORATORY AND X-RAY DATA: Showed a white blood cell count of 9.18, hemoglobin 9.7, hematocrit 30.1, platelets 349. PT and INR of 13.6 and 0.99. ABG showed a pH of 7.43, pCO2 of 32, PO2 76, bicarbonate 23 and this was on room air. Sodium of 143, potassium 4.5, chloride 104, CO2 20. BUN of 67, creatinine 3.2, glucose 104. Creatine kinase of 70, troponin 0.120. Plasma lactate of 2. Chest x-ray showed a stable exam. EKG showed sinus rhythm with frequent PVCs at 68. REVIEW OF SYSTEMS: He denies any fever, chills, blurred vision, dizziness, chest pain, coughing, shortness of breath. Denied any abdominal pain, constipation, diarrhea, burning or hurting with urination. PHYSICAL EXAMINATION: VITAL SIGNS: Showed a temperature of 98.3 degrees, pulse 67, respirations 13, blood pressure 116/81. GENERAL: This is an 88-year-old male, who is lying in bed and answers questions appropriately. Son also at bedside to give information and review of medical record. HEET: Normocephalic, atraumatic. Normal ENT inspection. Oropharynx and nares are clear. EYES: Pupils are equal, round, reactive to light and accommodation. Extraocular movements are intact. NECK: Normal inspection, normal range of motion. LUNGS: Clear to auscultation bilaterally with equal lung expansion and chest wall movement. HEART: With regular rate and rhythm. No murmurs, rubs, or gallops. ABDOMEN: Soft, nontender, nondistended. Bowel sounds are present x4 quadrants. MUSCULOSKELETAL: He has 3/5 strength x4 extremities. NEUROLOGICAL: The cranial nerves 2-12 are grossly intact. ASSESSMENT: 1. Altered mental status, multifactorial. 2. Acute on chronic kidney disease stage IV. 3. Elevated troponin, most likely secondary to elevated creatinine without the presence of chest pain or changes in electrocardiogram. 4. Generalized weakness. PLAN: He is being admitted to the medical unit. Placed on healthy heart diet. Normal saline at 125 mL an hour. We will continue his home medications as previously identified. Recheck a CBC, BMP in the a.m. Again, we will hold his diuretic and his Uloric. Further orders after being seen by attending. Dictated by MEHDI Ledesma for Eleuterio Connor MD cc: MEHDI Ledesma MD Michael Putman, MD
--- NOTE | 2018-12-08 20:06 | HISTORY AND PHYSICAL ---
ADDENDUM: The patient presents with confusion although he looks better this evening. I cannot really appreciate significant confusion but reportedly he is not at baseline for himself. He does have chronic renal failure. He sees Dr. Lozano in [place] for that. Apparently he has had a diminished p.o. intake with anorexia and he has significant heart history. In any case he was found to have acute on chronic renal failure at this point, he is usually a stage 3 and now he is stage 4 it looks like. He does have also mild elevation in his troponin so will have to take a peek at that. His exam is really unremarkable. He has nothing focal neurologically and will have to see how things look. We will continue his regular medications, pursue renal failure workup and reevaluate in the next 24 hours . As far as the encephalopathy that seems to be possibly related to the azotemia. He certainly may have some underlying dementia that may not be completely well characterized. He is not on any particular medication for that. He is on low-dose prednisone but that is a chronic medication for him so we will avoid nephrotoxic drugs and follow closely. This is a [id number] encounter note with Kari Mejia. cc: MD Dr. Jolanta Barrera
[2018-12-08] MEDS: NS 1,000 ML IV SCH (20:14)
[2018-12-08 22:33] LABS: UR CREAT RANDOM 83.6 mg/dL (14-26); UR PROT RANDOM 6.5 mg/dL
[2018-12-09] MEDS: NS 1,000 ML IV SCH (04:06)
[2018-12-09] MEDS ORDERED: BENADRYL PO PRN (05:54)
[2018-12-09 07:53] LABS: BASO# 0.07 X1000 (0.0-0.2); EOS# 0.31 X1000 (0.0-0.7); EOS% 4.5 % (0.0-10.0); HEMATOCRIT 31.4 % (42.0-52.0); HEMOGLOBIN 9.8 g/dL (14.0-18.0); IMM GRAN# 0.42 X1000 (0.0-0.04); IMM GRAN% 6.1 % (0.0-0.5); LYMPH# 1.03 X1000 (1.2-3.4); MCH 28.7 PG (27-31); MCHC 31.2 g/dL (33-37); MCV 92.1 FL (81-99); MONO# 1.21 X1000 (0.11-0.59); MONO% 17.7 % (1.7-9.3); MPV 10.6 FL (7.4-10.4); NEUT# 3.81 X1000 (1.4-6.5); NEUT% 55.7 % (42.2-75.2); PLT 344 X1000 (130-400); RBC 3.41 XMIL (4.7-6.1); RDW 13.8 % (11.5-14.5); WBC 6.85 X1000 (4.8-10.8)
[2018-12-09 08:05] LABS: CALCIUM 8.8 mg/dL (8.8-10.2); CREATININE 2.4 mg/dL (0.7-1.2)
[2018-12-09] MEDS: BYSTOLIC PO SCH (09:29)
[2018-12-09] MEDS: ASPIRIN EC PO SCH (09:30)
[2018-12-09] MEDS: PREDNISONE PO SCH (09:30)
[2018-12-09] MEDS: NORVASC PO SCH (09:30)
[2018-12-09 09:37] LABS: ANISOCYTOSIS 2+; EOS 2 % (1-10); LYMPHS 9 % (21-51); MICROCYTOSIS OCCASIONAL; MONO 8 % (1-9); SEGS 81 % (42-75)
--- NOTE | 2018-12-09 16:22 | Diag Imaging Result Doc PS360 ---
EXAM: US RENAL 2 (RETROPER) COMPLETE HISTORY: aury/arf TECHNIQUE: Real-time transabdominal evaluation of the kidneys and bladder. COMPARISON: None. FINDINGS: Right kidney: 4.9 centimeters in length. Renal echotexture is hyperechoic with cortical thinning consistent with medical renal disease.. There is no hydronephrosis, nephrolithiasis, or focal renal mass. Left kidney: 12.2 centimeters in length. Renal echotexture is hyperechoic with cortical thinning consistent with medical renal disease. There is no hydronephrosis, nephrolithiasis, or focal renal mass. Bladder: No focal abnormality is appreciated. IMPRESSION: Bilateral medical renal disease. Atrophic right kidney. Electronically signed by Manisha Rondon 12/09/2018 4:20 PM
--- NOTE | 2018-12-09 17:01 | PROGRESS NOTE ---
DATE: 12/09/2018 SUBJECTIVE: The patient has no major complaints. He would like to go home. OBJECTIVE: Blood pressure 123/44, heart rate 61, respiratory rate 18, temperature 98.1 degrees, and 95% on room air.Cardiovascular: Regular. Pulmonary: Bilateral breath sounds. Clear to auscultation. GI: Soft, nontender, and nondistended. Bowel sounds are positive. LABORATORY DATA: White count 6, hemoglobin and hematocrit 9 and 31, and platelets 344,000. BUN and creatinine are down to 54 and 2.4 which is close to baseline. Troponin is 0.113. They have been elevated previously, which is likely related to his age and renal dysfunction. His echocardiogram was really not that impressive. PROBLEM LIST: 1. Encephalopathy. To me that seems better. I do not appreciate he is that confused, but his family is insistent that he is confused. 2. We are going to repeat head CT, and see if there is anything going on there different. 3. Acute kidney injury. He is usually around stage 3, and is back to baseline. I am going to continue fluids for another 24 hours and we will see how he does. 4. Hypertension appears to be stable on current medications. DISPOSITION: I anticipate discharge probably in the next 24 hours. cc: MD Fransico Barrera MD
--- NOTE | 2018-12-09 17:29 | Diag Imaging Result Doc PS360 ---
CT HEAD W/O CONTRAST - 12/09/2018 INDICATION: encephalopathy COMPARISON: 12/02/2018 FINDINGS: Stable atrophy and chronic microvascular disease. No intracranial mass or hemorrhage. The skull is intact. The sinuses are clear. IMPRESSION: No acute disease or change from prior. This exam was performed using automated exposure control, adjustment of mA or kV according to patient size, and/or use of iterative reconstruction technique Electronically signed by Lamin Pérez 12/09/2018 5:26 PM
--- NOTE | 2018-12-10 01:12 | PROVIDER DOCUMENTATION ---
This chart was entered by Yoli Caro Scribe, acting as scribe for Candi Yates MD. HPI-Neurological Disorder - General Chief Complaint: Altered Mental Status Stated Complaint: confusion Time Seen by Provider: 12/08/18 13:09 Source: family (son) Allergies/Adverse Reactions: Patient Allergies Allergy/AdvReac Type Severity Reaction Status Date / Time No Known Allergies Allergy Verified 12/08/18 13:19 Home Medications: Home Medication List Medication Instructions Recorded Confirmed Last Taken Type Prednisone 10 mg PO DAILY 03/24/13 12/08/18 03/28/14 08:00 History Amlodipine Besylate 10 mg PO DAILY 05/26/18 12/08/18 Unknown History Aspirin [Aspir-Low] 81 mg PO DAILY 05/26/18 12/08/18 Unknown History Furosemide [Lasix] 40 mg PO DAILY 05/26/18 12/08/18 Unknown History Acetaminophen with Codeine 1 tab PO Q8H PRN PRN 12/02/18 12/08/18 Unknown History [Acetaminophen-Cod #3 Tablet] Febuxostat [Uloric] 40 mg PO DAILY 12/02/18 12/08/18 Unknown History Nebivolol HCl [Bystolic] 20 mg PO DAILY 12/02/18 12/08/18 Unknown History - History of Present Illness-Neuro Nature of Presenting Problem: Patient is a 88 year old male who presents to the ED via EMS with confusion. Patient's son states confusion started this morning. Patient's son denies history of dementia. Patient denies headache and chest pain. Severity: reports: mild Onset/Duration: reports: this morning Timing: reports: still present Context: reports: other (AMS) Character of Altered Mental Status: reports: confused Any recent trauma/injury?: reports: none Gait Baseline: walks without assistance Associated Symptoms: reports: fever/chills (chills) Similar Symptoms Previously?: Yes Recently seen or treated by another doctor?: Yes Review of Systems - Adult - REVIEW OF SYSTEMS - ADULT ROS:: ROS per family (son) Constitutional: reports: chills. denies: fever, fatique Eyes: reports: no symptoms reported Ears, Nose, Mouth & Throat: reports: no symptoms reported Cardiovascular: reports: no symptoms reported Respiratory: reports: no symptoms reported Gastrointestinal: reports: no symptoms reported Genitourinary: reports: no symptoms reported Musculoskeletal: reports: no symptoms reported Integumentary: reports: no symptoms reported Neurological: reports: other (AMS - confused). denies: dizziness/vertigo, headache/migraines, numbness, seizure, syncope Psychiatric: reports: no symptoms reported Endocrine: reports: no symptoms reported Hematologic/Lymphatic: reports: no symptoms reported Allergic/Immunologic: reports: no symptoms reported All Other Systems: Reviewed and Negative Past History - Adult - PAST MEDICAL HISTORY-ADULT Review of Records: reports: Nursing Assessment Review, Medications Reviewed, Social history reviewed & non-contributory. Major Childhood Illnesses: reports: denies history Cardiovascular: reports: CAD, HTN Respiratory: reports: denies history Gastrointestinal: reports: denies history Obstetrical/Gynecological: reports: denies history Genitourinary: reports: kidney disease, prostate cancer Musculoskeletal: reports: denies history Neurological: reports: denies history Psychiatric: reports: denies history Endocrine/Immune: reports: denies history Other Conditions: reports: denies history - PRIOR SURGERIES/PROCEDURES Surgical/Procedure History: reports: CABG, orthopedic (extremity) (bilateral shoulder,elbow), other (vasectomy,TURP, kidney sx) - IMMUNIZATION STATUS Childhood Immunizations: See Nurse Assessment Flu Vaccine: See Nurse Assessment - FAMILY HISTORY Family History: reviewed, not pertinent - SOCIAL HISTORY Smoking: denies Substance Use: denies Physical Exam- Neurological - Physical Exam-Neuro Initial Vital Signs Reviewed: Yes General Appearance: alert, no apparent distress Head Injury: no evidence of injury Neck: non-tender, normal inspection Respiratory: chest non-tender, lungs clear, normal breath sounds Cardiovascular: normal peripheral pulses, regular rate, rhythm Abdominal Exam: normal bowel sounds, non tender, soft Extremity: other (chronic venous stasis bilaterally) Integumentary: normal color, normal turgor, warm/dry Psych/Mental Status: other (confused) Progress - PLAN OF CARE/RESULTS Progress/Plan/Lab Results: Laboratory Results - last 24 hr 12/09/18 12/09/18 12/09/18 00:40 06:27 06:27 WBC 6.85 RBC 3.41 L Hgb 9.8 L Hct 31.4 L MCV 92.1 MCH 28.7 MCHC 31.2 L RDW Std Deviation 13.8 Plt Count 344 MPV 10.6 H Immature Gran % (Auto) 6.1 H Neut % (Auto) 55.7 Lymph % (Auto) 15.0 L [place] % (Auto) 17.7 H Eos % (Auto) 4.5 Baso % (Auto) 1.0 H Immature Gran # (Auto) 0.42 H Neut # (Auto) 3.81 Lymph # (Auto) 1.03 L [place] # (Auto) 1.21 H Eos # (Auto) 0.31 Baso # (Auto) 0.07 Segmented Neutrophils 81 H Lymphocytes 9 L Monocytes 8 Eosinophils 2 Anisocytosis 2+ Microcytosis OCCASIONAL Sodium 144 Potassium 4.0 Chloride 110 H Carbon Dioxide 21 L Anion Gap 13 BUN 54 H Creatinine 2.4 H Estimated GFR/1.73 m2 26 BUN/Creatinine Ratio 23 Glucose 97 Calculated Osmolality 302 Calcium 8.8 Creatine Kinase Troponin T 0.113 H 12/09/18 06:27 WBC RBC Hgb Hct MCV MCH MCHC RDW Std Deviation Plt Count MPV Immature Gran % (Auto) Neut % (Auto) Lymph % (Auto) [place] % (Auto) Eos % (Auto) Baso % (Auto) Immature Gran # (Auto) Neut # (Auto) Lymph # (Auto) [place] # (Auto) Eos # (Auto) Baso # (Auto) Segmented Neutrophils Lymphocytes Monocytes Eosinophils Anisocytosis Microcytosis Sodium Potassium Chloride Carbon Dioxide Anion Gap BUN Creatinine Estimated GFR/1.73 m2 BUN/Creatinine Ratio Glucose Calculated Osmolality Calcium Creatine Kinase 108 Troponin T Orders Category Date Time Status Admit - [facility] Routine AdmDCTranf 12/08/18 15:16 Active Admit Patient To Inpatient Status Routine AdmDCTranf 12/09/18 14:30 Active Activity - Up Ad Shyla ORDERED Care 12/08/18 15:16 Active Cardiac Monitoring DIRECTED Care 12/08/18 13:20 Completed Finger Stick Blood Sugar (ED) DIRECTED Care 12/08/18 13:20 Completed Hurt Cath Insertion ORDERED Care 12/08/18 14:04 Inactive Neurological Check PRN Care 12/08/18 15:16 Active Oxygen Therapy- ED Nursing DIRECTED Care 12/08/18 13:20 Active Saline Loc NOW Care 12/08/18 13:20 Active Vital Signs Order Q 8-HR ASSESS Care 12/08/18 15:16 Active Z-Document. for Tele Applied ORDERED Care 12/08/18 15:17 Inactive Heart Healthy Diet Diet 12/08/18 16:43 Active CHEST-PORTABLE [RAD] Stat Exams 12/08/18 13:20 Completed US RENAL 2 (RETROPER) COMPLETE [US] Routine Exams 12/09/18 06:00 Completed ABG [RESP] Routine Lab 12/08/18 13:44 Completed BASIC METABOLIC PANEL [CHEM] Routine Lab 12/09/18 06:27 Completed CBC WITH DIFF [HEME] Routine Lab 12/09/18 06:27 Completed CBC WITH ELECTRONIC DIFF [HEME] Stat Lab 12/08/18 13:38 Completed CK PROFILE [SP CHEM] Q4H Lab 12/08/18 20:20 Completed CK PROFILE [SP CHEM] Q4H Lab 12/09/18 06:27 Completed CK PROFILE [SP CHEM] Stat Lab 12/08/18 13:38 Completed COMPREHENSIVE METABOLIC PANEL [CHEM] Stat Lab 12/08/18 13:38 Completed LACTATE, PLASMA [CHEM] Stat Lab 12/08/18 13:38 Completed PROTIME WITH INR [COAG] Stat Lab 12/08/18 13:38 Completed PTT [COAG] Stat Lab 12/08/18 13:38 Completed TROPONIN T Q4H Lab 12/08/18 20:20 Completed TROPONIN T Q4H Lab 12/09/18 00:40 Completed TROPONIN T Stat Lab 12/08/18 13:38 Completed UR CREAT RANDOM [URCHEM] Routine Lab 12/08/18 21:55 Completed UR PROT RANDOM [URCHEM] Routine Lab 12/08/18 21:55 Completed UR SODIUM [URCHEM] Routine Lab 12/08/18 21:55 Completed 0.9% Sodium Chloride Inj [Ns] 1,000 ml Med 12/08/18 16:43 Discontinued IV 125 mls/hr 0.9% Sodium Chloride Inj [Ns] 1,000 ml Med 12/08/18 15:16 Discontinued IV 200 mls/hr 0.9% Sodium Chloride Inj [Ns] 1,000 ml Med 12/08/18 20:00 Discontinued IV 75 mls/hr 0.9% Sodium Chloride Inj [Ns] 1,000 ml Med 12/08/18 14:27 Discontinued IV 999 mls/hr Acetaminophen [Tylenol] Med 12/08/18 14:04 Discontinued 1,000 mg PO NOW ONE Acetaminophen with Codeine [Tylenol with Codeine #3] Med 12/08/18 16:43 Active 1 each PO Q8H PRN PRN Amlodipine [Norvasc] Med 12/09/18 09:00 Active 10 mg PO DAILY Aspirin EC Med 12/09/18 09:00 Active 81 mg PO DAILY Diphenhydramine [Benadryl] Med 12/09/18 05:54 Discontinued 50 mg PO Q6H PRN PRN Nebivolol [Bystolic] Med 12/09/18 09:00 Active 20 mg PO DAILY Prednisone Med 12/09/18 09:00 Active 10 mg PO DAILY Altered Mental Status Stat Oth 12/08/18 13:19 Ordered Telemetry [OM.EQ] Routine Oth 12/08/18 15:16 Active EKG [EKG] Stat Ther 12/08/18 13:20 Draft Transfer/Admit Order [TRANSFER] Routine Transfer 12/08/18 15:15 Completed Result Diagrams: 12/09/18 06:27 12/09/18 06:27 - EKG 1 Time of EKG reading by physician:: 13:29 EKG Read and Signed by:: Candi Yates EKG Interpretation (*Must complete 3 of following elements*): Abnormal Rate: 68 Rhythm: sinus rhythm with frequent premature ventricular complexes [place]: normal QRS: RBB ST Wave: normal Comments: inferior infarct, age undetermined - XRAY 1 XRAY Study: Chest Impression: See EMR Report (EXAM: CHEST-PORTABLE HISTORY: ams TECHNIQUE: Chest single view COMPARISON: 12/02/2018 FINDINGS: Poor inspiratory effort. Sternal wires are present. The heart is borderline mildly prominent. No vascular distention. There is a granuloma in the right lung base. No change in the tiny left pleural effusion versus pleural thickening. The overall appearance of the chest is similar to the prior study. IMPRESSION: Stable exam. Electronically signed by Mele Parrish 12/08/2018 1:55 PM [id number] Interpreting Physician: Mele Parrish MD Dictated Date/Time: 12/08/18 0027 cc: Candi Yates MD;) - CONSULTS/PCP/HOSPITALIST Notification #1 *Consult/PCP/Hospitalist*: Dr. Connor Time Discussed: 15:10 Reason/Comments: Dr. Yates consulted with Dr. Connor about patient Consult Disposition: Will see in ED, Admit Departure - Departure Date of Disposition Decision: 12/08/18 Time of Disposition Decision: 15:10 DIAGNOSIS: Acute on chronic kidney failure Disposition: ADMITTED INPATIENT 09 Certified Medical Emergency: Emergent Condition: Fair - Critical Care Note This patient required my direct & personal management of CC.: No Attestation - Physician/ HERMELINDA Attestation Patient care was provided by Advanced Practice Provider:: No The physician spent face to face time with patient:: Yes Advanced Practice Provider documentation review:: Supervising physician onsite and consulted in the evaluation and care of this patient. The physician did have a face to face encounter with the patient. This chart was documented by the indicated scribe, (Yoli Caro Scribe) and accurately reflects the services I performed and decisions made by me, Candi Yates MD, as attested by the provider's signature.
[2018-12-10 06:10] VITALS: BP 135/53
[2018-12-10 07:26] LABS: BASO# 0.04 X1000 (0.0-0.2); BASO% 0.7 % (0.0-0.8); EOS# 0.13 X1000 (0.0-0.7); EOS% 2.2 % (0.0-10.0); IMM GRAN# 0.21 X1000 (0.0-0.04); IMM GRAN% 3.6 % (0.0-0.5); LYMPH# 0.66 X1000 (1.2-3.4); LYMPH% 11.4 % (20.5-51.1); MCH 28.4 PG (27-31); MCV 91.5 FL (81-99); MONO# 0.85 X1000 (0.11-0.59); MONO% 14.7 % (1.7-9.3); MPV 10.3 FL (7.4-10.4); NEUT# 3.89 X1000 (1.4-6.5); NEUT% 67.4 % (42.2-75.2); PLT 313 X1000 (130-400); RBC 3.17 XMIL (4.7-6.1); RDW 13.3 % (11.5-14.5); WBC 5.78 X1000 (4.8-10.8)
[2018-12-10 07:34] LABS: POTASSIUM 4.1 mmol/L (3.5-5.1)
[2018-12-10 08:23] LABS: ANISOCYTOSIS 2+; EOS 2 % (1-10); LYMPHS 12 % (21-51); MONO 13 % (1-9); SEGS 73 % (42-75)
[2018-12-10] MEDS ORDERED: FLU VACCINE IM ONE (09:00)
[2018-12-10] MEDS: ASPIRIN EC PO SCH (10:01)
[2018-12-10] MEDS: NORVASC PO SCH (10:01)
[2018-12-10] MEDS: PREDNISONE PO SCH (10:01)
[2018-12-10] MEDS: BYSTOLIC PO SCH (10:01)
--- NOTE | 2018-12-11 00:58 | PROGRESS NOTE ---
DATE: 12/10/2018 Day of discharge he is sitting up in bed. He looks fine. Discussion about him being confused, but he is alert oriented times 4, person, place, time. He knows who the president is. He does not seem like he has issues. His BUN and creatinine are down to 46 and 2, which is pretty close to baseline. Hemoglobin and hematocrit are stable. I feel he is stable to go home. Follow up with Dr. Stover. I think he has an appointment next week and then follow up with Dr. Lozano as well, his primary clinical research nurse. This is a [id number] encounter note with Kari Mejia. cc: MD Fransico Barrera MD
--- NOTE | 2018-12-11 01:29 | DISCHARGE SUMMARY ---
ADMISSION DATE: 12/08/2018 DISCHARGE DATE: 12/10/2018 PRIMARY CARE PHYSICIAN: Dr. Stover. ADMISSION DIAGNOSES: 1. Altered mental status, multifactorial. 2. 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 3. Elevated troponin likely secondary to elevated creatinine without the presence of chest pain or changes in EKG. 4. Generalized weakness. DISCHARGE DIAGNOSES: 1. Encephalopathy, improved but continues to remain somewhat confused and there may be some underlying dementia present. 2. An acute on chronic kidney disease, back to baseline at stage III. 3. Hypertension. SUMMARY OF FINDINGS: This is an 88-year-old male who presented to the emergency room with increased confusion since he was discharged on 12/04/2018 where he was also admitted for increased confusion, but was found to be dehydrated. His labs showed the day of arrival a BUN of 67 and a creatinine of 3.2 which was elevated from when he was discharged at 2.1. The son states that he had been taking his diuretic but not eating and drinking. He was also noted to have a bump in his troponin at 0.120, most likely secondary to the increase in his creatinine. We did trend those and did not find any further significant findings. They did go down minimally. His creatinine today is down to 2.0. He remains to have some confusion at times. We did repeat a head CT on 12/09/2018 that showed no acute disease or change from prior so it is felt that he can safely be discharged home today. He will have Home Health services. DISCHARGE MEDICATIONS: Tylenol #3 one p.o. q.8 hours p.r.n., amlodipine 10 mg p.o. daily, aspirin 81 mg p.o. daily, Bystolic 20 mg p.o. daily, prednisone 10 mg p.o. daily, Uloric 40 mg p.o. daily and Lasix 40 mg p.o. daily. FOLLOW-UP: He will need to follow up with his primary care physician in 1 to 2 weeks, call the office for an appointment. All discharge instructions have been reviewed with the patient and he verbalizes understanding. TIME: 33 minute discharge. Dictated by MEHDI Ledesma for Eleuterio Connor MD cc: MEHDI Ledesma MD Michael Putman, MD
== END 2018-12-10 15:06 | disposition home health service (06) | DRG 684 ==
LOC: P.MEDSURG 13:04 → P.ED 13:04 → SUATTDRO 15:56
PROVIDERS: ADMIT Internal Medicine; ATTEND Internal Medicine
CPT/HCPCS: 70450; 71010; 71045; 76770; 80048; 80053; 82550; 82570; 82805; 82948; 83605; 84156; 84300; 84484; 85025; 85610; 85730; 90686; 93005; 96360; 99285; A9270; J7030; J7506; J7512; XXXXX

== ENCOUNTER 2019-06-08 18:24 | Inpatient (IN) ==
--- NOTE | 2019-06-08 18:16 | EKG Report ---
Test Performed on : 06/08/2019 5:24:12 PM Test Reason : weakness Blood Pressure : / mmHG Vent. Rate : 083 BPM Atrial Rate : 441 BPM P-R Int : 000 ms QRS Dur : 140 ms QT Int : 402 ms P-R-T Axes : 000 115 006 degrees QTc Int : 472 ms Atrial fibrillation. Right bundle branch block Left posterior fascicular block Bifascicular block Cannot rule out Inferior infarct (cited on or before 24-MAR-2013) Abnormal ECG When compared with ECG of 08-DEC-2018 13:29, Atrial fibrillation. has replaced Sinus rhythm. Questionable change in initial forces of Inferior leads Unconfirmed Result
[2019-06-08 18:20] LABS: BASO# 0.03 X1000 (0.0-0.2); BASO% 0.2 % (0.0-0.8); EOS# 0.16 X1000 (0.0-0.7); HEMATOCRIT 37.2 % (42.0-52.0); HEMOGLOBIN 11.8 g/dL (14.0-18.0); IMM GRAN# 0.13 X1000 (0.0-0.04); IMM GRAN% 0.8 % (0.0-0.5); LYMPH# 1.22 X1000 (1.2-3.4); LYMPH% 7.4 % (20.5-51.1); MCH 28.9 PG (27-31); MCHC 31.7 g/dL (33-37); MCV 91.2 FL (81-99); MONO# 2.26 X1000 (0.11-0.59); MONO% 13.7 % (1.7-9.3); MPV 11.3 FL (7.4-10.4); NEUT# 12.65 X1000 (1.4-6.5); NEUT% 76.9 % (42.2-75.2); PLT 218 X1000 (130-400); RBC 4.08 XMIL (4.7-6.1); RDW 15.2 % (11.5-14.5); WBC 16.45 X1000 (4.8-10.8)
[2019-06-08 18:22] LABS: PROTIME 13.7 Seconds (11.0-16.0)
[2019-06-08 18:23] LABS: PTT 29.6 Seconds (22.3-41.8)
[~2019-06-08 18:24] MED LIST: MAXIPIME 2 GM in NS 100 ML IV ONE; NS 500 ML IV ONE; VANCOMYCIN 1 GM/NS 1 GM/250 ML IVPB IV ONE
[2019-06-08 18:37] LABS: ALBUMIN 4.3 g/dL (3.5-5.0); CALCIUM 8.6 mg/dL (8.8-10.2); CREATININE 2.4 mg/dL (0.7-1.2); MAGNESIUM 2.3 mg/dL (1.5-2.7); POTASSIUM 4.1 mmol/L (3.5-5.1); TOTAL BILIRUBIN 0.7 mg/dL (0.20-1.00); TOTAL PROTEIN 6.4 g/dL (6.3-8.3)
--- NOTE | 2019-06-08 18:45 | Diag Imaging Result Doc PS360 ---
EXAM: CHEST-1 VIEW HISTORY: weakness TECHNIQUE: Chest single view COMPARISON: 05/26/2019 FINDINGS: Poor inspiratory effort. The heart is not enlarged. Sternal wires are present. The vessels are not distended. There are no infiltrates. No effusion identified. Right granuloma. IMPRESSION: Stable chest Electronically signed by Mele Parrish 06/08/2019 6:43 PM
--- NOTE | 2019-06-08 19:14 | PROVIDER DOCUMENTATION ---
This chart was entered by Yoli Caro Scribe, acting as scribe for Robbie Pierce MD. HPI-General Adult - General Source: patient - History of Present Illness -Gen Adult Nature of Presenting Problems: Patient is a 88 year old male who presents with pain, swelling and erythema to bilateral lower extremities. States symptoms have been present for 1.5 weeks. Son states patient has had a decrease in appetite. Location of Pain/Injury: reports: lower extremity (bilateral lower extremities) Pain Radiation: reports: no radiation Quality of Pain: reports: aching Severity: reports: mild Onset/Duration: reports: other (1.5 weeks) Timing: reports: still present Context/Activities at Onset: reports: light activity Associated Symptoms: reports: other (swelling and erythema to bilateral lower extremities) Similar Symptoms Previously?: Yes Recently seen or treated by another doctor?: No <Robbie Pierce - Last Filed: 06/08/19 19:13> <Rajeev Brown - Last Filed: 06/08/19 19:38> - General Chief Complaint: Altered Mental Status Stated Complaint: WEAKNESS & AMS Time Seen by Provider: 06/08/19 17:50 Allergies/Adverse Reactions: Patient Allergies Allergy/AdvReac Type Severity Reaction Status Date / Time No Known Allergies Allergy Verified 12/08/18 13:19 Home Medications: Home Medication List Medication Instructions Recorded Confirmed Last Taken Type Prednisone 10 mg PO DAILY 03/24/13 12/08/18 03/28/14 08:00 History Amlodipine Besylate 10 mg PO DAILY 05/26/18 12/08/18 Unknown History Aspirin [Aspir-Low] 81 mg PO DAILY 05/26/18 12/08/18 Unknown History Furosemide [Lasix] 40 mg PO DAILY 05/26/18 12/08/18 Unknown History Acetaminophen with Codeine 1 tab PO Q8H PRN PRN 12/02/18 12/08/18 Unknown History [Acetaminophen-Cod #3 Tablet] Febuxostat [Uloric] 40 mg PO DAILY 12/02/18 12/08/18 Unknown History Nebivolol HCl [Bystolic] 20 mg PO DAILY 12/02/18 12/08/18 Unknown History Review of Systems - Adult - REVIEW OF SYSTEMS - ADULT Constitutional: reports: no symptoms reported. denies: chills, fever, fatique Eyes: reports: no symptoms reported Ears, Nose, Mouth & Throat: reports: no symptoms reported Cardiovascular: reports: no symptoms reported Respiratory: reports: no symptoms reported Gastrointestinal: reports: no symptoms reported Genitourinary: reports: no symptoms reported Musculoskeletal: reports: see HPI, other (pain to bilateral lower extremities). denies: back pain, neck pain Integumentary: reports: see HPI, other (swelling and erythema to bilateral lower extremities.). denies: hives, itching, rash Neurological: reports: no symptoms reported Psychiatric: reports: no symptoms reported Endocrine: reports: no symptoms reported Hematologic/Lymphatic: reports: no symptoms reported Allergic/Immunologic: reports: no symptoms reported All Other Systems: Reviewed and Negative <Robbie Pierce - Last Filed: 06/08/19 19:13> Past History - Adult - PAST MEDICAL HISTORY-ADULT Review of Records: reports: Old Records Reviewed, Nursing Assessment Review, Medications Reviewed, Social history reviewed & non-contributory. Major Childhood Illnesses: reports: denies history Cardiovascular: reports: CAD, HTN Respiratory: reports: denies history Gastrointestinal: reports: denies history Obstetrical/Gynecological: reports: denies history Genitourinary: reports: kidney disease, prostate cancer Musculoskeletal: reports: denies history Neurological: reports: denies history Psychiatric: reports: denies history Endocrine/Immune: reports: denies history Other Conditions: reports: denies history - PRIOR SURGERIES/PROCEDURES Surgical/Procedure History: reports: CABG, orthopedic (extremity) (bilateral shoulder,elbow), other (vasectomy,TURP, kidney sx) - IMMUNIZATION STATUS Childhood Immunizations: See Nurse Assessment Flu Vaccine: See Nurse Assessment - FAMILY HISTORY Family History: reviewed, not pertinent - SOCIAL HISTORY Smoking: cigarettes (former) Substance Use: denies Living Situation: family <Robbie Pierce - Last Filed: 06/08/19 19:13> Physical Exam-General - PHYSICAL EXAM-ADULT Initial Vital Signs Reviewed: Yes - CONSTITUTIONAL General Appearance: alert, no apparent distress. negative: lethargic - EYES Eyes: PERRL/EOMI, pink conjunctivae. negative: subconjunctival hemorrhage - HEAD, EARS, NOSE, MOUTH & THROAT HENMT: moist mucous membranes, normal ENT inspection. negative: angioedema - RESPIRATORY Respiratory: chest non-tender, lungs clear, normal breath sounds. negative: crackles, rhonchi - CARDIOVASCULAR Cardiovascular: normal peripheral pulses, regular rate, rhythm. negative: tachycardia, systolic murmur - GASTROINTESTINAL (ABDOMEN) Abdominal Exam: normal bowel sounds, non tender, soft. negative: guarding - MUSCULOSKELETAL Extremity: erythema (bilateral lower extremities), tenderness (bilateral lower extremities). negative: deformity - SKIN Integumentary: normal turgor, warm/dry, erythema (bilateral lower extremities). negative: cyanosis, jaundice - NEUROLOGIC Neurologic: grossly normal. negative: aphasia, facial droop - PSYCHIATRIC Psych/Mental Status: normal mood/affect, oriented x 3. negative: anxious <Robbie Pierce - Last Filed: 06/08/19 19:13> Progress - PLAN OF CARE/RESULTS Progress/Plan/Lab Results: Vital Signs - 8 hr 06/08/19 17:07 Temperature 98 F Pulse Rate 104 H Respiratory Rate 20 Blood Pressure 138/76 O2 Sat by Pulse Oximetry 97 Orders Category Date Time Status Cardiac Monitoring DIRECTED Care 06/08/19 17:52 Active IV Insertion ORDERED Care 06/08/19 17:52 Active IV Insertion ORDERED Care 06/08/19 17:52 Completed Intake and Output-Strict ORDERED Care 06/08/19 17:52 Active Notify MD/PA/MEHDI for exam NOW Care 06/08/19 17:52 Active Repeat Vital Signs .Blood Pressure Care 06/08/19 17:52 Active Repeat Vital Signs .Heart Rate Care 06/08/19 17:52 Active Repeat Vital Signs .Oxygen Saturation Care 06/08/19 17:52 Active Repeat Vital Signs .Respiratory Rate Care 06/08/19 17:52 Active Repeat Vital Signs .Temp Care 06/08/19 17:52 Active CHEST-1 VIEW [RAD] Stat Exams 06/08/19 17:49 Completed BLOOD CULTURE [BLDCUL] Stat Lab 06/08/19 18:04 Ordered CBC WITH DIFF [HEME] Stat Lab 06/08/19 17:35 Completed CK PROFILE [SP CHEM] Stat Lab 06/08/19 17:35 Completed COMPREHENSIVE METABOLIC PANEL [CHEM] Stat Lab 06/08/19 17:35 Completed LACTATE, PLASMA [CHEM] Lab 06/08/19 21:00 Uncollected LACTATE, PLASMA [CHEM] Lab 06/09/19 00:00 Uncollected LACTATE, PLASMA [CHEM] Timed Lab 06/08/19 17:35 Completed MAGNESIUM [CHEM] Stat Lab 06/08/19 17:35 Completed PROTIME WITH INR [COAG] Stat Lab 06/08/19 17:35 Completed PTT [COAG] Stat Lab 06/08/19 17:35 Completed TROPONIN T Stat Lab 06/08/19 17:35 Completed 0.9% Sodium Chloride Inj [Ns] 500 ml Med 06/08/19 17:51 Discontinued IV 999 mls/hr CefEPIME [Maxipime] 2 gm Med 06/08/19 17:51 Discontinued 0.9% Sodium Chloride Inj [Ns] 100 ml IV NOW Vancomycin 1 gm/Ns Med 06/08/19 17:51 Discontinued 1 gm in 250 ml IV NOW Oxygen Device Stat Oth 06/08/19 17:52 Completed EKG [EKG] Stat Ther 06/08/19 17:49 Draft Laboratory Tests 06/08/19 06/08/19 06/08/19 17:35 17:35 17:35 WBC Cancelled 16.45 H RBC Cancelled 4.08 L Hgb Cancelled 11.8 L Hct Cancelled 37.2 L MCV Cancelled 91.2 MCH Cancelled 28.9 MCHC Cancelled 31.7 L RDW Std Deviation Cancelled 15.2 H Plt Count Cancelled 218 MPV Cancelled 11.3 H Immature Gran % (Auto) Cancelled 0.8 H Neut % (Auto) Cancelled 76.9 H Lymph % (Auto) Cancelled 7.4 L [place] % (Auto) Cancelled 13.7 H Eos % (Auto) Cancelled 1.0 Baso % (Auto) Cancelled 0.2 Immature Gran # (Auto) Cancelled 0.13 H Neut # (Auto) Cancelled 12.65 H Lymph # (Auto) Cancelled 1.22 [place] # (Auto) Cancelled 2.26 H Eos # (Auto) Cancelled 0.16 Baso # (Auto) Cancelled 0.03 Corrected WBC (Man) Cancelled PT INR PTT (Actin FS) Sodium 143 Potassium 4.1 Chloride 106 Carbon Dioxide 17 L Anion Gap 20 BUN 91 H Creatinine 2.4 H Estimated GFR/1.73 m2 26 BUN/Creatinine Ratio 38 Glucose 71 Calculated Osmolality 311 Calcium 8.6 L Magnesium 2.3 Total Bilirubin 0.70 AST 32 ALT 24 Alkaline Phosphatase 99 Creatine Kinase 189 Troponin T Total Protein 6.4 Albumin 4.3 Globulin 2.0 Albumin/Globulin Ratio 2.0 Plasma Lactate 06/08/19 06/08/19 06/08/19 17:35 17:35 17:35 WBC RBC Hgb Hct MCV MCH MCHC RDW Std Deviation Plt Count MPV Immature Gran % (Auto) Neut % (Auto) Lymph % (Auto) [place] % (Auto) Eos % (Auto) Baso % (Auto) Immature Gran # (Auto) Neut # (Auto) Lymph # (Auto) [place] # (Auto) Eos # (Auto) Baso # (Auto) Corrected WBC (Man) PT 13.7 INR 1.00 PTT (Actin FS) 29.6 Sodium Potassium Chloride Carbon Dioxide Anion Gap BUN Creatinine Estimated GFR/1.73 m2 BUN/Creatinine Ratio Glucose Calculated Osmolality Calcium Magnesium Total Bilirubin AST ALT Alkaline Phosphatase Creatine Kinase Troponin T 0.252 H Total Protein Albumin Globulin Albumin/Globulin Ratio Plasma Lactate 1.4 Result Diagrams: 06/08/19 17:35 06/08/19 17:35 - EKG 1 Time of EKG reading by physician:: 17:24 EKG Read and Signed by:: Robbie Pierce EKG Interpretation (*Must complete 3 of following elements*): Abnormal (cannot rule out inferior infarct, age undetermined) Rate: 83 Rhythm: atrial fibrillation [place]: normal QRS: RBB Comments: left posterior fascicular block; bifascicular block; - XRAY 1 XRAY Study: Chest Impression: See EMR Report ([facility] - [address] [place] [address] [place], [place] [id number] [facility] - [address] [place] [address] Department of Imaging Patient: ALYSSIA RAO Date: 06/08/19MR#: [id number] : 1930DM [id number] Age/Sex: 88/MRoom/Bed: Loc: P.ED Ordering Physician: Robbie Pierce MD Family Physician: None,PCP Reason for Procedure: weakness Signed EXAM: CHEST-1 VIEW HISTORY: weakness TECHNIQUE: Chest single view COMPARISON: 05/26/2019 FINDINGS: Poor inspiratory effort. The heart is not enlarged. Sternal wires are present. The vessels are not distended. There are no infiltrates. No effusion identified. Right granuloma. IMPRESSION: Stable chest Electronically signed by Mele Parrish 06/08/2019 6:43 PM 06/08/191842 Interpreting Physician: Mele Parrish MD Dictated Date/Time: 06/08/191842 cc: Robbie Pierce MD; None,PCP) <Robbie Pierce - Last Filed: 06/08/19 19:13> - PLAN OF CARE/RESULTS Progress/Plan/Lab Results: Vital Signs - 8 hr 06/08/19 17:07 06/08/19 19:16 Temperature 98 F Pulse Rate 104 H 80 Respiratory Rate 20 21 Blood Pressure 138/76 134/66 O2 Sat by Pulse Oximetry 97 97 Laboratory Results - last 24 hr 06/08/19 06/08/19 06/08/19 17:35 17:35 17:35 WBC Cancelled 16.45 H RBC Cancelled 4.08 L Hgb Cancelled 11.8 L Hct Cancelled 37.2 L MCV Cancelled 91.2 MCH Cancelled 28.9 MCHC Cancelled 31.7 L RDW Std Deviation Cancelled 15.2 H Plt Count Cancelled 218 MPV Cancelled 11.3 H Immature Gran % (Auto) Cancelled 0.8 H Neut % (Auto) Cancelled 76.9 H Lymph % (Auto) Cancelled 7.4 L [place] % (Auto) Cancelled 13.7 H Eos % (Auto) Cancelled 1.0 Baso % (Auto) Cancelled 0.2 Immature Gran # (Auto) Cancelled 0.13 H Neut # (Auto) Cancelled 12.65 H Lymph # (Auto) Cancelled 1.22 [place] # (Auto) Cancelled 2.26 H Eos # (Auto) Cancelled 0.16 Baso # (Auto) Cancelled 0.03 Corrected WBC (Man) Cancelled PT INR PTT (Actin FS) Sodium 143 Potassium 4.1 Chloride 106 Carbon Dioxide 17 L Anion Gap 20 BUN 91 H Creatinine 2.4 H Estimated GFR/1.73 m2 26 BUN/Creatinine Ratio 38 Glucose 71 Calculated Osmolality 311 Calcium 8.6 L Magnesium 2.3 Total Bilirubin 0.70 AST 32 ALT 24 Alkaline Phosphatase 99 Creatine Kinase 189 Troponin T Total Protein 6.4 Albumin 4.3 Globulin 2.0 Albumin/Globulin Ratio 2.0 Plasma Lactate 06/08/19 06/08/19 06/08/19 17:35 17:35 17:35 WBC RBC Hgb Hct MCV MCH MCHC RDW Std Deviation Plt Count MPV Immature Gran % (Auto) Neut % (Auto) Lymph % (Auto) [place] % (Auto) Eos % (Auto) Baso % (Auto) Immature Gran # (Auto) Neut # (Auto) Lymph # (Auto) [place] # (Auto) Eos # (Auto) Baso # (Auto) Corrected WBC (Man) PT 13.7 INR 1.00 PTT (Actin FS) 29.6 Sodium Potassium Chloride Carbon Dioxide Anion Gap BUN Creatinine Estimated GFR/1.73 m2 BUN/Creatinine Ratio Glucose Calculated Osmolality Calcium Magnesium Total Bilirubin AST ALT Alkaline Phosphatase Creatine Kinase Troponin T 0.252 H Total Protein Albumin Globulin Albumin/Globulin Ratio Plasma Lactate 1.4 Orders Category Date Time Status Cardiac Monitoring DIRECTED Care 06/08/19 17:52 Active IV Insertion ORDERED Care 06/08/19 17:52 Active IV Insertion ORDERED Care 06/08/19 17:52 Completed Intake and Output-Strict ORDERED Care 06/08/19 17:52 Active Notify MD/PA/MEHDI for exam NOW Care 06/08/19 17:52 Active Repeat Vital Signs .Blood Pressure Care 06/08/19 17:52 Active Repeat Vital Signs .Heart Rate Care 06/08/19 17:52 Active Repeat Vital Signs .Oxygen Saturation Care 06/08/19 17:52 Active Repeat Vital Signs .Respiratory Rate Care 06/08/19 17:52 Active Repeat Vital Signs .Temp Care 06/08/19 17:52 Active CHEST-1 VIEW [RAD] Stat Exams 06/08/19 17:49 Completed BLOOD CULTURE [BLDCUL] Stat Lab 06/08/19 18:04 Ordered CBC WITH DIFF [HEME] Stat Lab 06/08/19 17:35 Completed CK PROFILE [SP CHEM] Stat Lab 06/08/19 17:35 Completed COMPREHENSIVE METABOLIC PANEL [CHEM] Stat Lab 06/08/19 17:35 Completed LACTATE, PLASMA [CHEM] Lab 06/08/19 21:00 Uncollected LACTATE, PLASMA [CHEM] Lab 06/09/19 00:00 Uncollected LACTATE, PLASMA [CHEM] Timed Lab 06/08/19 17:35 Completed MAGNESIUM [CHEM] Stat Lab 06/08/19 17:35 Completed PROTIME WITH INR [COAG] Stat Lab 06/08/19 17:35 Completed PTT [COAG] Stat Lab 06/08/19 17:35 Completed TROPONIN T Stat Lab 06/08/19 17:35 Completed 0.9% Sodium Chloride Inj [Ns] 1,000 ml Med 06/08/19 19:16 Active IV 125 mls/hr 0.9% Sodium Chloride Inj [Ns] 1,000 ml Med 06/08/19 19:15 Active IV 999 mls/hr 0.9% Sodium Chloride Inj [Ns] 500 ml Med 06/08/19 17:51 Discontinued IV 999 mls/hr CefEPIME [Maxipime] 2 gm Med 06/08/19 17:51 Discontinued 0.9% Sodium Chloride Inj [Ns] 100 ml IV NOW Piperacillin/Tazobactam [Zosyn] 3.375 gm Med 06/08/19 19:23 Active 0.9% Sodium Chloride Inj [Ns] 50 ml IV NOW Vancomycin 1 gm/Ns Med 06/08/19 17:51 Discontinued 1 gm in 250 ml IV NOW Oxygen Device Stat Oth 06/08/19 17:52 Completed EKG [EKG] Stat Ther 06/08/19 17:49 Draft Result Diagrams: 06/08/19 17:35 06/08/19 17:35 - CHANGE OF SHIFT REPORT (ED Provider) 1 Report Given and Care Transferred to:: Dr. Brown Time of Transfer: 19:27 Items Pending: Physician Consult/Arrival <Rajeev Brown - Last Filed: 06/08/19 19:38> Departure <Robbie Pierce - Last Filed: 06/08/19 19:13> - Departure Date of Disposition Decision: 06/08/19 Time of Disposition Decision: 19:38 Certified Medical Emergency: Emergent - Critical Care Note This patient required my direct & personal management of CC.: No <Rajeev Brown - Last Filed: 06/08/19 19:38> - Departure DIAGNOSIS: Acute on chronic kidney failure Qualifiers: Acute renal failure type: unspecified Chronic kidney disease stage: unspecified stage Qualified Code(s): N17.9 - Acute kidney failure, unspecified; N18.9 - Chronic kidney disease, unspecified Cellulitis Qualifiers: Site of cellulitis: extremity Site of cellulitis of extremity: lower extremity Laterality: unspecified laterality Qualified Code(s): L03.119 - Cellulitis of unspecified part of limb Leukocytosis Qualifiers: Leukocytosis type: unspecified Qualified Code(s): D72.829 - Elevated white blood cell count, unspecified Disposition: ADMITTED INPATIENT 09 Condition: Stable Referrals and Follow-Ups: None,PCP [Primary Care Provider] - Attestation - Physician/ HERMELINDA Attestation The physician spent face to face time with patient:: Yes Advanced Practice Provider documentation review:: Supervising physician onsite and consulted in the evaluation and care of this patient. The physician did have a face to face encounter with the patient. <Robbie Pierce - Last Filed: 06/08/19 19:13> - Physician/ HERMELINDA Attestation Patient care was provided by Advanced Practice Provider:: No The physician spent face to face time with patient:: Yes Advanced Practice Provider documentation review:: Supervising physician onsite and consulted in the evaluation and care of this patient. The physician did have a face to face encounter with the patient. <Rajeev Brown - Last Filed: 06/08/19 19:38> This chart was documented by the indicated scribe, (Yoli Caro Scribe) and accurately reflects the services I performed and decisions made by Stan nye Alex T., MD, as attested by the provider's signature.
[2019-06-08] MEDS ORDERED: NS 1,000 ML IV ONE ×2 (19:15→19:16)
[2019-06-08] MEDS ORDERED: ZOSYN 3.375 GM in NS 50 ML IV ONE (19:23)
[2019-06-08] MEDS ORDERED: VANCOMYCIN IV PER PHARMACY MISC SCH (19:45)
[2019-06-08] MEDS: VANCOMYCIN 700 MG in NS 250 ML IV ONE ×2 (20:00→22:22)
[2019-06-08] MEDS: TYLENOL WITH CODEINE #3 PO PRN (23:40)
[2019-06-09] MEDS: SINEQUAN PO SCH ×2 (00:21→21:35)
[2019-06-09] MEDS ORDERED: ZOSYN 3.375 GM in NS 50 ML IV ONE (01:00)
[2019-06-09] MEDS: NORVASC PO SCH (09:00)
[2019-06-09] MEDS: ULORIC PO SCH (09:00)
[2019-06-09] MEDS: PREDNISONE PO SCH (09:00)
[2019-06-09] MEDS: APRESOLINE PO SCH ×3 (09:00→16:49)
[2019-06-09] MEDS: BYSTOLIC PO SCH (09:00)
[2019-06-09] MEDS: LASIX PO SCH (09:00)
[2019-06-09] MEDS: ASPIRIN EC PO SCH (09:00)
[2019-06-09] MEDS: TYLENOL WITH CODEINE #3 PO PRN ×2 (09:32→17:03)
--- NOTE | 2019-06-09 10:12 | Diag Imaging Result Doc PS360 ---
EXAM: CHEST-PORTABLE HISTORY: SOB TECHNIQUE: Single view of the chest was performed portably. COMPARISON: 06/08/2019 FINDINGS: There is cardiomegaly with median sternotomy wires. Increasing vascular congestion and basilar edema compared to yesterday's study particularly within left lower lobe. Small bilateral effusions. IMPRESSION: Increasing vascular congestion and bibasilar edema. Electronically signed by Manisha Rondon 06/09/2019 10:10 AM
[2019-06-09 10:25] LABS: CK INDEX 3.7 (0.0-2.5); CK-MB 8.72 ng/mL (0.0-5.0)
[2019-06-09] MEDS ORDERED: DUONEB (A & A) INH ONE (10:29)
[2019-06-09] MEDS ORDERED: LASIX IV ONE (10:30)
--- NOTE | 2019-06-09 10:34 | EKG Report ---
Test Performed on : 06/09/2019 10:20:53 AM Test Reason : CP Blood Pressure : / mmHG Vent. Rate : 064 BPM Atrial Rate : 064 BPM P-R Int : 210 ms QRS Dur : 148 ms QT Int : 454 ms P-R-T Axes : 022 077 027 degrees QTc Int : 468 ms Sinus rhythm. with 1st degree AV block. Possible Left atrial enlargement Right bundle branch block Abnormal ECG When compared with ECG of 08-JUN-2019 17:24, (Unconfirmed) Sinus rhythm. has replaced Atrial fibrillation. Confirmed by Fransico Stover MD ([id number]) on 06/09/2019 9:35:25 PM
[2019-06-09] MEDS: DUONEB (A & A) INH SCH ×4 (10:53→23:45)
--- NOTE | 2019-06-09 15:14 | CONSULTATION ---
DATE OF CONSULTATION: 06/09/2019 IMPRESSION: 1. Nonspecific slight elevation in troponin probably related to chronic renal dysfunction aggravated by intravascular volume depletion. 2. The patient currently admitted with bilateral lower extremity pain and apparent bilateral cellulitis. 3. Chronic kidney disease stage 4. 4. 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 5. Hypertension. 6. Prostate cancer. RECOMMENDATIONS: 1. Continue medical management of patient's coronary atherosclerosis. 2. Continue efforts to optimize patient's hydration status. 3. Continue antibiotics for suspected cellulitis. 4. Conservative cardiovascular management overall in light of patient's limited functional status. 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 He has had no chest pain. He had a slight elevation in troponin prompting Cardiology consultation. He lives with his at home. He is fairly disabled, and does not ambulate much at all. He is somewhat confused and is not aware of the date. He denies any chest pain or shortness of breath. He complains primarily of bilateral lower extremity pain. He is not aware of any fever. PAST MEDICAL HISTORY: 1. 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 2. Hypertension. 3. Chronic kidney disease stage 4. 4. Gout. PAST SURGICAL HISTORY: Also includes bilateral shoulder surgery, bilateral elbow surgery, previous vasectomy, and previous transurethral resection of prostate. ALLERGIES: No known drug allergies. MEDICATIONS PRIOR TO ADMISSION: As listed. SOCIAL HISTORY: He is , and he lives with his . He quit smoking more than 50 years ago. He is fairly debilitated, and has difficulty with ambulation. He has a son that lives in [place], and another son that lives in [place], [place]. FAMILY HISTORY: Positive for coronary disease, but negative for premature coronary disease. REVIEW OF SYSTEMS: Pulmonary: Negative. Gastrointestinal: Negative. Constitutional: Negative. Remainder of Review of Systems negative/noncontributory with 14 total systems reviewed. PHYSICAL EXAMINATION: General: This is an elderly white male in no distress on supplemental oxygen per nasal cannula. Vital signs: Blood pressure 107/37, heart rate 67, oxygen saturation 94% on nasal cannula oxygen at 2 L/minute. HEENT: Extraocular muscles appear intact. Mucous membranes are moist. Neck: Supple. Jugular venous pressure appears to be normal based on inspection of the neck veins. Chest: Auscultation of chest reveals no rales, but a few scant rhonchi. Cardiac: Exam reveals a regular rate and rhythm without appreciable murmur or gallop. Abdomen: Soft. Bowel sounds are normal. Extremities: Demonstrate prominent diffuse erythema involving the distal lower extremities bilaterally with tenderness to touch. Neurologic: Reveals him to be alert and responsive. He is oriented to person, place, but not to the year. Moves all 4 extremities equally well. Speech is fluent. PERTINENT DATA: Twelve lead EKG demonstrates sinus rhythm with occasional premature ventricular complex. Right bundle branch block, and old inferior infarct. LABORATORY DATA: White blood cell count of 16.45, hematocrit 37.2, hemoglobin 11.8, platelet count 219,000. Sodium 143, potassium 4.1, and chloride 106. Carbon dioxide 17, BUN 91, and creatinine 2.4. Initial troponin 0.252. Follow-up troponin 0.3. cc: MD Fransico Cerda MD
[2019-06-09] MEDS: DUONEB (A & A) INH PRN (17:10)
[2019-06-09 17:26] LABS: BE -15.5 mmoll (-3.0-3.0); BLOOD TYPE ARTERIAL; HCO3-(ACT) 12.8 mmoll (20.0-26.0); METHB 1.4 % (0.0-1.5); O2(CT) 13.9 mL/dL (15.0-23.0); O2HB 95.8 % (95.0-99.0); PCO2(98.6) 25 mmHg (35-45); PO2(98.6) 111 mmHg (60-100); SAMPLE BLOOD; THB 10.2 g/dL (11.5-17.4); pH(98.6) 7.23 (7.35-7.45)
[2019-06-09 17:28] LABS: ALLEN TEST NO
[2019-06-09 17:29] LABS: MODALITY COOL AEROSOL
[2019-06-09 19:39] LABS: ALBUMIN 3.2 g/dL (3.5-5.0); CALCIUM 7.6 mg/dL (8.8-10.2); POTASSIUM 4.8 mmol/L (3.5-5.1); TOTAL BILIRUBIN 0.3 mg/dL (0.20-1.00); TOTAL PROTEIN 5.6 g/dL (6.3-8.3)
[2019-06-09 20:07] LABS: CK INDEX 5.2 (0.0-2.5); CK-MB 11.31 ng/mL (0.0-5.0)
--- NOTE | 2019-06-09 21:45 | Diag Imaging Result Doc PS360 ---
EXAM: CHEST-PORTABLE INDICATION: pulmonary edema TECHNIQUE: One view COMPARISON: 06/09/2019 FINDINGS: Inspiration is suboptimal similar to the previous study. Pulmonary venous congestion and basilar edema, worse on the left, is essentially stable. No new consolidation is identified. Cardiac silhouette is stable. IMPRESSION: Essentially stable chest. Electronically signed by Oliver Anthony 06/09/2019 9:43 PM
[2019-06-10] MEDS: DUONEB (A & A) INH SCH ×6 (04:11→22:39)
[2019-06-10 04:17] LABS: BLOOD TYPE ARTERIAL; SAMPLE BLOOD
[2019-06-10 04:18] LABS: BE -8.6 mmoll (-3.0-3.0); HCO3-(ACT) 18.2 mmoll (20.0-26.0); METHB 1.2 % (0.0-1.5); O2(CT) 12.8 mL/dL (15.0-23.0); O2HB 96.8 % (95.0-99.0); PCO2(98.6) 28 mmHg (35-45); PO2(98.6) 207 mmHg (60-100); SAO2 99.5 % (95.0-100.0); SRATE 16 BPM; pH(98.6) 7.36 (7.35-7.45)
[2019-06-10 04:35] LABS: ALLEN TEST YES; MODALITY BI PAP
[2019-06-10 08:01] LABS: ALBUMIN 3.1 g/dL (3.5-5.0); CALCIUM 7.7 mg/dL (8.8-10.2); CREATININE 3.3 mg/dL (0.7-1.2); MAGNESIUM 2.4 mg/dL (1.5-2.7); POTASSIUM 4.2 mmol/L (3.5-5.1); TOTAL BILIRUBIN 0.2 mg/dL (0.20-1.00); TOTAL PROTEIN 4.9 g/dL (6.3-8.3)
[2019-06-10 08:19] LABS: EOS# 0.01 X1000 (0.0-0.7); EOS% 0.1 % (0.0-10.0); HEMATOCRIT 28.2 % (42.0-52.0); HEMOGLOBIN 8.8 g/dL (14.0-18.0); IMM GRAN# 0.09 X1000 (0.0-0.04); IMM GRAN% 0.6 % (0.0-0.5); LYMPH# 0.52 X1000 (1.2-3.4); LYMPH% 3.7 % (20.5-51.1); MCH 28.3 PG (27-31); MCHC 31.2 g/dL (33-37); MCV 90.7 FL (81-99); MONO# 0.93 X1000 (0.11-0.59); MONO% 6.6 % (1.7-9.3); MPV 10.7 FL (7.4-10.4); NEUT# 12.63 X1000 (1.4-6.5); PLT 195 X1000 (130-400); RBC 3.11 XMIL (4.7-6.1); RDW 14.9 % (11.5-14.5); WBC 14.18 X1000 (4.8-10.8)
[2019-06-10] MEDS: BYSTOLIC PO SCH (08:29)
[2019-06-10] MEDS: APRESOLINE PO SCH ×3 (08:29→17:38)
[2019-06-10] MEDS: NORVASC PO SCH (08:29)
[2019-06-10] MEDS: ASPIRIN EC PO SCH (08:30)
[2019-06-10] MEDS: LASIX PO SCH (08:30)
[2019-06-10] MEDS: PREDNISONE PO SCH (08:30)
[2019-06-10] MEDS: ULORIC PO SCH (08:30)
[2019-06-10 08:36] LABS: CK INDEX 3.7 (0.0-2.5); CK-MB 11.45 ng/mL (0.0-5.0)
[2019-06-10 10:21] LABS: ANISOCYTOSIS 2+; LYMPHS 2 % (21-51); MONO 7 % (1-9); POIKILOCYTOSIS OCCASIONAL; SEGS 91 % (42-75)
[2019-06-10] MEDS ORDERED: SANTYL OINT TOP ONE (17:47)
[2019-06-10] MEDS ORDERED: VANCOMYCIN 1,350 MG in NS 250 ML IV SCH (20:00)
[2019-06-10] MEDS: SINEQUAN PO SCH (20:47)
[2019-06-10] MEDS ORDERED: DEMEROL IV ONE (21:20)
[2019-06-10] MEDS ORDERED: ZOFRAN IV PRN (21:21)
[2019-06-10] MEDS ORDERED: DEMEROL ONE (21:32)
[2019-06-11] MEDS: DUONEB (A & A) INH SCH ×6 (03:11→23:31)
[2019-06-11 05:13] LABS: BE -5.5 mmoll (-3.0-3.0); BLOOD TYPE ARTERIAL; HCO3-(ACT) 20.6 mmoll (20.0-26.0); METHB 0.9 % (0.0-1.5); O2(CT) 12.4 mL/dL (15.0-23.0); O2HB 96.5 % (95.0-99.0); PCO2(98.6) 32 mmHg (35-45); PO2(98.6) 100 mmHg (60-100); SAMPLE BLOOD; SRATE 14 BPM; pH(98.6) 7.38 (7.35-7.45)
[2019-06-11 05:15] LABS: ALLEN TEST YES; MODALITY BI PAP
[2019-06-11 06:08] LABS: BASO# 0.01 X1000 (0.0-0.2); BASO% 0.1 % (0.0-0.8); EOS# 0.07 X1000 (0.0-0.7); EOS% 0.6 % (0.0-10.0); HEMATOCRIT 27.6 % (42.0-52.0); HEMOGLOBIN 8.6 g/dL (14.0-18.0); IMM GRAN# 0.07 X1000 (0.0-0.04); IMM GRAN% 0.6 % (0.0-0.5); LYMPH% 4.1 % (20.5-51.1); MCH 28.1 PG (27-31); MCHC 31.2 g/dL (33-37); MCV 90.2 FL (81-99); MONO# 1.05 X1000 (0.11-0.59); MONO% 8.6 % (1.7-9.3); MPV 10.8 FL (7.4-10.4); NEUT# 10.55 X1000 (1.4-6.5); PLT 187 X1000 (130-400); RBC 3.06 XMIL (4.7-6.1); RDW 14.8 % (11.5-14.5); WBC 12.25 X1000 (4.8-10.8)
[2019-06-11 06:36] LABS: ALBUMIN 3.1 g/dL (3.5-5.0); CALCIUM 7.8 mg/dL (8.8-10.2); CREATININE 3.5 mg/dL (0.7-1.2); POTASSIUM 3.8 mmol/L (3.5-5.1); TOTAL BILIRUBIN 0.2 mg/dL (0.20-1.00)
[2019-06-11 06:50] LABS: LYMPHS 4 % (21-51); MONO 6 % (1-9); SEGS 90 % (42-75)
--- NOTE | 2019-06-11 07:54 | Diag Imaging Result Doc PS360 ---
EXAM: CHEST-PORTABLE 06/11/2019 HISTORY: SOB TECHNIQUE: AP portable at 0639 COMMENT: Compared to 06/09/2019, there has been some clearing of the left basilar opacities. The heart size remains enlarged. There may be bilateral pleural fluid collections. IMPRESSION: Improved atelectasis or pneumonia in the left lower lobe. Electronically signed by Hunter Barros 06/11/2019 7:52 AM
[2019-06-11] MEDS: PREDNISONE PO SCH (08:19)
[2019-06-11] MEDS: ASPIRIN EC PO SCH (08:19)
[2019-06-11] MEDS: LASIX PO SCH (08:19)
[2019-06-11] MEDS: ULORIC PO SCH (08:19)
[2019-06-11] MEDS: BYSTOLIC PO SCH (08:19)
[2019-06-11] MEDS: APRESOLINE PO SCH ×3 (08:19→21:26)
[2019-06-11] MEDS: NORVASC PO SCH (08:19)
[2019-06-11] MEDS ORDERED: ALBUMIN 25% IV ONE (08:38)
[2019-06-11] MEDS ORDERED: VANCOMYCIN 1,350 MG in NS 250 ML IV SCH (09:00)
[2019-06-11] MEDS: TYLENOL WITH CODEINE #3 PO PRN ×2 (10:18→18:28)
--- NOTE | 2019-06-11 10:44 | EKG Report ---
Test Performed on : 06/11/2019 06:44:01 AM Test Reason : ROUTINE Blood Pressure : / mmHG Vent. Rate : 086 BPM Atrial Rate : 067 BPM P-R Int : 000 ms QRS Dur : 144 ms QT Int : 438 ms P-R-T Axes : 000 083 -01 degrees QTc Int : 524 ms Atrial fibrillation. with a competing junctional pacemaker. Right bundle branch block Abnormal ECG When compared with ECG of 11-JUN-2019 06:43, (Unconfirmed) QRS axis shifted left Criteria for Lateral infarct are no longer present Criteria for Inferior infarct are no longer present Confirmed by Fransico Stover MD ([id number]) on 06/20/2019 11:31:07 AM
--- NOTE | 2019-06-11 11:41 | Diag Imaging Result Doc PS360 ---
EXAM: US RENAL 2 (RETROPER) COMPLETE HISTORY: decreased renal function TECHNIQUE: Renal ultrasound COMPARISON: 12/09/2018 FINDINGS: The right kidney is poorly seen. No specific details identified. The left kidney measures 9.0 x 14.7 cm. Borderline mild increased renal echotexture. No stone or hydronephrosis. Urinary bladder is distended and is normal. IMPRESSION: Borderline increased renal echotexture which can be seen with medical renal disease. Electronically signed by Mele Parrish 06/11/2019 11:39 AM
[2019-06-11] MEDS: DEMEROL IV PRN (15:32)
[2019-06-11 15:45] LABS: URINE SOURCE VOIDED
[2019-06-11 15:51] LABS: UR CREAT RANDOM 128.3 mg/dL (14-26); UR PROT RANDOM 20.1 mg/dL
[2019-06-11 15:57] LABS: BILIRUBIN URINE NEGATIVE (NEGATIVE); BLOOD URINE NEGATIVE (NEGATIVE); GLUCOSE URINE NEGATIVE (NEGATIVE); KETONE URINE NEGATIVE (NEGATIVE); LEUKOCYTES URINE NEGATIVE (NEGATIVE); NITRITE URINE NEGATIVE (NEGATIVE); PROTEIN URINE TRACE mg/dL (NEGATIVE); UROBILINOGEN URINE NORMAL
[2019-06-11 15:58] LABS: CLARITY CLEAR (CLEAR); COLOR YELLOW
[2019-06-11 16:01] LABS: URINE BACTERIA NEGATIVE /HFP; URINE CAST NONE SEEN /LPF; URINE CRYSTAL NONE SEEN /HPF; URINE EPITHELIAL CELLS <10 /HPF (<10); URINE RBC <10 /HPF (<10); URINE WBC <10 /HPF (<10); URINE YEAST NONE SEEN /HPF
--- NOTE | 2019-06-11 16:15 | CARDIOLOGY PROGRESS NOTE ---
DATE: 06/11/2019 CHIEF COMPLAINT: Shortness of breath. Pain and swelling in the legs. SUBJECTIVE: Mr. Hoyos is still coughing quite a bit and still feeling short of breath. OBJECTIVE: Vital Signs: Blood pressure is 120/49, temperature 97.8, pulse 76, and respirations 13. General: He is awake and alert. He is chronically ill. HEENT: Some slight prominence of the jugular veins. Respiratory: Chest shows bilateral end-expiratory wheezes, rhonchi, and diminished breath sounds diffusely. Cardiac: Heart sounds at the time of my examination are distant, however, they are regular. Abdomen: The abdomen is nontender. Extremities: The extremities show significant muscle atrophy, decreased pulses, and some discoloration of both legs. Neurological: He is hard of hearing. He follows commands and moves all extremities. The most recent chest x-rays from today shows improved atelectasis or pneumonia in the left lobe. Telemetry shows that he had a 4.6 second pause when converting from atrial fibrillation into sinus rhythm. This happened at about 10:40 in the morning. The EKG that they did earlier in the morning today at 6:44 shows atrial fibrillation with a right bundle branch block so he just had a conversion pause. He just feels weak. LABORATORY DATA: Blood work shows a white cell count of 12,250. Hemoglobin is 8.6 and hematocrit 27.6. His blood gas with a BiPAP at 40% FiO2: pO2 is 100, pCO2 32, and pH 7.38. Sodium is 141, potassium 3.8, BUN 102, and creatinine 3.5. GFR is rather low at 15 mL/min which is significant renal dysfunction. His troponin level has crept up to 0.696 ng/ml. However, the CPK dropped to 194. IMPRESSION: 1. Patient who presents with decompensated heart failure. This is probably a combination of systolic and diastolic. 2. Paroxysmal atrial fibrillation with a 4.6-4.8 second conversion pause indicating some underlying sick sinus syndrome. 3. 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 4. Severe coronary artery disease with previous bypass in the past. 5. History of aortic valve replacement. 6. History of peripheral vascular disease and possible cellulitis of the legs. 7. Acute non ST elevation myocardial infarction happening during this admission with a rise and fall of CPK and troponins. RECOMMENDATION: At this time I would suggest to focus on palliative care. The patient evidently has multiorgan dysfunction and given his advanced age he is really not a candidate for any aggressive intervention. I would not recommend a pacemaker even with a 4.6 second pause. Given his multiorgan dysfunction a pacemaker probably is not going to make any difference in terms of survival or relief of symptoms. I agree with the DNR status. I believe hospice care is probably a reasonable option for him. Thank you for the opportunity to participate in his evaluation. cc: MD Fransico Jama MD [facility]
[2019-06-11] MEDS ORDERED: ZAROXOLYN PO ONE (18:57)
--- NOTE | 2019-06-11 19:33 | PROGRESS NOTE ---
DATE: 06/11/2019 SUBJECTIVE/OBJECTIVE: The patient has had progressively more edema showing up in his lower extremities and his hands. His abdomen seems to be distended. He is a bit tachypneic. He has a rattling cough. No obvious jugular venous distention. He has been not truly responding to his Lasix very well. LABORATORY DATA: His white count today is 12,250; hematocrit is 27.6; and platelet count is 187. He has a left shift. Chemistries today: Sodium 141, potassium 3.8, chloride 107, CO2 of 17, BUN 102, creatinine 3.5, GFR estimated at 17. LFTs are normal. ALT 34, AST 39, alkaline phosphatase 91. CPK is 194. Troponin still remains elevated at 0.696; I am sure this is related to his renal clearance. Total protein 5, albumin 3.1. IMAGING: Chest x-ray is as follows: Compared to 06/09/2019, there has been some clearing of the left basilar opacities. The heart size remains enlarged. There may be bilateral pleural effusions, which I suspect that there are. Renal ultrasound shows the right kidney is poorly seen. No specific details identified. The left kidney measures 9 x 14.7. Borderline mild increased renal echotexture. No stones or hydro. Urinary bladder is distended and is normal. ASSESSMENT AND PLAN: We are considering putting in a Hurt catheter and we may try Lasix combined with Zaroxolyn. The patient's mental status seems to be fine and he is in pretty good spirits. cc: Fransico Stover MD
[2019-06-11] MEDS ORDERED: LASIX IV ONE (20:00)
--- NOTE | 2019-06-11 20:26 | NEPHROLOGY CONSULTATION ---
DATE: 06/11/2019 TIME SEEN: 929. REASON FOR ADMISSION: Weakness, altered mental status, chronic kidney disease, cellulitis, left lower extremity. REASON FOR CONSULTATION: Assist with management, acute on chronic kidney disease. CONSULTING PHYSICIAN: Dr. Stover. HISTORY OF PRESENT ILLNESS: This is an 88-year-old gentleman with known chronic kidney disease, stage 4, with a baseline creatinine of 2 to 2.5, who routinely follows with Dr. Lozano. The patient's son is at the bedside and states that his creatinine is always 2.5 or thereabouts. He informs me that the patient is not desirous of aggressive intervention and plans for medical management of his renal disease. The patient came into the emergency room on day of admission secondary to pain, swelling, and erythema of bilateral lower extremities that had been going on for a week and a half. He had worsening appetite. He was found to have a large wound to the left lower extremity. The patient has been placed on vancomycin, dosed per Pharmacy. He has been given some diuretic. His fluid volumes have been marginal and it is unclear as far as his total intake and output. He does have some incontinence with voiding. Initially, his creatinine was 2.4 which would have been well within his baseline. It has slowly risen and today is 3.5. The patient developed some cough and shortness of breath over the last couple of days. He has undergone imaging that showed venous congestion and basilar edema, worse on the left, but stable. He has been seen in consult by Cardiology who felt that he had a nonspecific slight elevation in troponin related to his chronic renal disease, and aggravated by intravascular volume depletion. Today, the patient still continues with a cough, but has an adequate appetite. He has not been out of bed. PAST MEDICAL HISTORY: Listed as: 1. Coronary artery disease. 2. Hypertension. 3. Chronic kidney disease, stage 4, with a baseline creatinine of 2 to 2.5. 4. History of prostate cancer. 5. Gout. PAST SURGICAL HISTORY: 1. CABG. 2. Orthopedic surgery, shoulder and elbow. 3. Vasectomy. 4. TURP. 5. Kidney surgery. ALLERGIES: No known drug allergies. HOME MEDICATIONS: Listed as: 1. Prednisone. 2. Amlodipine. 3. Aspirin. 4. Furosemide. 5. Acetaminophen with codeine. 6. Uloric. 7. Bystolic. FAMILY HISTORY: Noncontributory. SOCIAL HISTORY: Former smoker. No current EtOH, tobacco, or illicit drug use. He currently lives with his family. His son is at the bedside. REVIEW OF SYSTEMS: Pertinent positives as noted above in the HPI. PHYSICAL EXAMINATION: Vital Signs: Temperature 97.6 degrees, pulse 67, respiratory rate 18, blood pressure 112/85, intake 655 mL, output 430 mL, plus some incontinent voids. General: This is a chronically ill-appearing, elderly gentleman, currently sitting up in bed. He is awake and alert. He is extremely hard of hearing, but is able to give some information. HEENT: Normocephalic, atraumatic. Conjunctivae are pale. Oral mucosa is moist. Neck: Supple. He has trace JVD. Cardiovascular: Reveals regular rate and rhythm. Pulmonary: He has some wheezing bilaterally, but equal excursion. Abdomen: Soft, positive bowel sounds. : Voiding. Extremities: Trace lower extremity edema. No clubbing, cyanosis. He has 1+ bilateral lower extremity edema with erythematous areas, especially to the left lower extremity, that is covered with a gauze dressing. Integumentary: Skin is warm and dry otherwise. Neurologic: Hard of hearing, but grossly nonfocal. LAB DATA: WBC of 12.5, hemoglobin 8.6. Sodium 141, potassium 3.8, CO2 17, creatinine 3.5, albumin 3.1. Random vancomycin this morning was 11.7. Chest x-ray indicated pneumonia and atelectasis, left lower lobe. ASSESSMENT AND PLAN: 1. Acute on chronic kidney disease. This is a patient who has been on significant intravenous antibiotics as well as diuretics for his swelling. There was some question of intravascular volume depletion. We will order urine studies and ultrasound to further stratify his current kidney function and plan of care. I did discuss with the family in regard to patient wishes if his renal function continues to worsen. They very plainly stated he would never want dialysis. He has told them for many years he does not. The patient has limited function ability and they are planning on conservative management for his renal disease. Therefore, we will maximize his medication regimen and continue to follow along, as the patient does not have any indication for intervention otherwise. 2. Fluid volume. He does have lower extremity edema. He also has a left upper lobe pneumonia. Patient has been on Lasix. Once I have gotten his urine studies back, we will be able to clarify intervascular meeds and add additional orders. Albumin is marginal Add 25 g today to assist with fluid mobility. 3. Cellulitis. A random vancomycin was within target, and he is on 1350 mg vancomycin every 60 hours. This is being calculated per Pharmacy and we will make no changes. Dictated by MEHDI Cartagena for Eduard Bond MD Face to face encounter, data reviewed, discussed with Earnest Collier on 06/11/19. I agree with the above assessment and plan of care. cc: MD Fransico Menjivar MD [facility]
[2019-06-11] MEDS: SINEQUAN PO SCH (21:26)
[2019-06-12] MEDS: DUONEB (A & A) INH SCH ×6 (03:29→22:30)
[2019-06-12 06:12] LABS: HEMATOCRIT 28.8 % (42.0-52.0); MCH 28.2 PG (27-31); MCHC 31.3 g/dL (33-37); MCV 90.3 FL (81-99); RBC 3.19 XMIL (4.7-6.1); RDW 14.9 % (11.5-14.5); WBC 11.73 X1000 (4.8-10.8)
[2019-06-12 06:37] LABS: ALBUMIN 3.8 g/dL (3.5-5.0); CALCIUM 8.2 mg/dL (8.8-10.2); CREATININE 3.9 mg/dL (0.7-1.2); PHOSPHORUS 6.3 mg/dL (2.7-4.5); POTASSIUM 4.1 mmol/L (3.5-5.1)
[2019-06-12] MEDS: BYSTOLIC PO SCH (08:26)
[2019-06-12] MEDS: ASPIRIN EC PO SCH (08:26)
[2019-06-12] MEDS: PREDNISONE PO SCH (08:26)
[2019-06-12] MEDS: LASIX PO SCH (08:26)
[2019-06-12] MEDS: NORVASC PO SCH (08:26)
[2019-06-12] MEDS: APRESOLINE PO SCH ×4 (08:26→20:21)
[2019-06-12] MEDS: ULORIC PO SCH (08:26)
[2019-06-12] MEDS: TYLENOL WITH CODEINE #3 PO PRN (09:12)
[2019-06-12] MEDS: SINEQUAN PO SCH (20:21)
[2019-06-12] MEDS: TUSSIONEX LIQUID PO PRN (20:29)
--- NOTE | 2019-06-12 21:29 | Diag Imaging Result Doc PS360 ---
EXAM: CHEST-2 VIEWS HISTORY: follow up / comparison TECHNIQUE: Chest two views COMPARISON: 06/11/2019 FINDINGS: Poor inspiratory effort. Heart is mildly enlarged. A heart valve has been replaced. There are small pleural effusions with basilar atelectasis. There could be underlying infiltrates as well. IMPRESSION: No interval improvement. Electronically signed by Mele Parrish 06/12/2019 9:26 PM
[2019-06-13] MEDS: TYLENOL WITH CODEINE #3 PO PRN ×2 (01:25→20:27)
[2019-06-13] MEDS: DEMEROL IV PRN (03:27)
[2019-06-13] MEDS: DUONEB (A & A) INH SCH ×6 (03:35→22:33)
[2019-06-13 05:33] LABS: HEMATOCRIT 28.3 % (42.0-52.0); MCH 28.4 PG (27-31); MCHC 31.8 g/dL (33-37); MCV 89.3 FL (81-99); MPV 10.2 FL (7.4-10.4); RBC 3.17 XMIL (4.7-6.1); RDW 14.8 % (11.5-14.5); WBC 11.76 X1000 (4.8-10.8)
[2019-06-13 06:08] LABS: ALBUMIN 3.5 g/dL (3.5-5.0); CREATININE 4.2 mg/dL (0.7-1.2); PHOSPHORUS 6.2 mg/dL (2.7-4.5); POTASSIUM 4.3 mmol/L (3.5-5.1)
--- NOTE | 2019-06-13 06:46 | NEPHROLOGY PROGRESS NOTE ---
DATE: 06/12/2019 SUBJECTIVE: Patient is sitting up on the side of the bed shaving. He states that his cough has continued but his breathing is actually better. OBJECTIVE: Vital Signs: Temperature 97.4 degrees, pulse 70, respiratory rate 22, blood pressure 118/88, intake 760 mL. Output 445 mL voided urine. General: This is an outgoing gentleman sitting up on the side of the bed. He is awake and alert. He has some confusion but no acute distress. HEENT: Normocephalic, atraumatic. He has some periorbital edema. Neck: Supple. Trachea midline. Cardiovascular: Regular rate and rhythm. Pulmonary: He has a wet sounding cough. No wheezes. Abdomen: Soft, positive bowel sounds. : Voiding, incontinent. Extremities: He has 2+ edema to the upper extremities. The lower extremities from the knee up have improvement in edema. He continues with some erythema, bilateral lower extremities. LAB DATA: Hemoglobin 9, sodium 140, potassium 4.1, CO2 18, creatinine 3.9, and BUN 106. His albumin is 3.8. ASSESSMENT AND PLAN: 1. Acute on chronic renal disease. Continues with worsening creatinine. Again, the patient is not desirous of aggressive intervention to manage either his renal function or his fluid volumes. From that standpoint then we would manage symptoms. He has been placed on IV Lasix. We agree with that dosing. He does not have profound pulmonary edema on chest x-ray. It is unclear how much benefit he would receive from larger doses of Lasix at this time. Encourage good pulmonary toilet, breathing treatments, appropriately dosed antibiotics. We will continue to follow along. Dictated by MEHDI Cartagena for Eduard Bond MD cc: MD Fransico Menjivar MD [facility]
[2019-06-13] MEDS: PREDNISONE PO SCH (09:26)
[2019-06-13] MEDS: LASIX PO SCH (09:26)
[2019-06-13] MEDS: ULORIC PO SCH (09:26)
[2019-06-13] MEDS: APRESOLINE PO SCH ×3 (09:26→20:27)
[2019-06-13] MEDS: BYSTOLIC PO SCH (09:26)
[2019-06-13] MEDS: ASPIRIN EC PO SCH (09:26)
[2019-06-13] MEDS: NORVASC PO SCH (09:26)
[2019-06-13] MEDS: DUONEB (A & A) INH PRN (09:51)
--- NOTE | 2019-06-13 10:46 | HISTORY AND PHYSICAL ---
HISTORY OF PRESENT ILLNESS: This is an 88-year-old patient of mine who presented to the emergency room on 06/08/2019 where he was seen by the ER physician. The patient presents with pain, generalized swelling and significant erythema in both lower extremities. He states symptoms have been present for 2 weeks, and it is associated with a decrease in appetite. In the ER, he had a chest x-ray done. Poor inspiratory effort. Heart size is not enlarged. Sternal wires are present. The vessels are not distended. There are no infiltrates or effusions. His laboratory data showed a white count of 16,450, hematocrit of 37.2, platelet count of 218,000. His chemistries showed sodium 143, potassium 4.1, chloride 106, CO2 was 17, BUN was 91, creatinine 2.4, GFR estimated at 26, glucose 71, calcium 8.6, magnesium 2.3, total bilirubin 0.7, AST was 32, ALT was 24, alkaline phosphatase 99. CK was 189. Troponin was 0.252. Total protein was 6.4, albumin 4.3, globulin 2, plasma lactate 1.4. The patient was admitted for fluid retention. ALLERGIES: He has no allergies. PAST MEDICAL HISTORY: The patient has had coronary artery disease. He had 3 bypasses and an aortic valve replacement in the past. He has had bilateral CEA. He has history of high blood pressure, cholesterol, chronic kidney disease and heart failure. He sees plastics design engineer in [place], Dr. Lozano, that he has been since he attended him during his operative period at the time. He has had prostate cancer. He has chronic kidney disease stage 4 and 5. He has had coronary artery disease with a triple bypass and aortic valve replacement. He has hypertension and dyslipidemia. PAST SURGICAL HISTORY: Vasectomy, TURP, bilateral shoulder and elbow surgeries and the previously mentioned CABG. REVIEW OF SYSTEMS: He denied any fever, chills, fatigue. Eyes: No visual acuity changes. Ears, nose and throat: No pharyngitis, otitis, or sinusitis. Cardiovascular: He denies any chest pain, any palpitations. Respiratory: He is not short of breath. He has had a tremendous cough that he has been worried with. He has been symptomatically treated and treated with antibiotics to no avail. Gastrointestinal: He denies any nausea, vomiting, diarrhea, constipation, bloody stools, black stools. Genitourinary: He has diminished urine flow, diminished output. No hematuria. No pyuria. No dysuria. Musculoskeletal: He has pain in both lower extremities. Skin: He has some generalized swelling and erythema and fissuring of the anterior shins. He denies itching or hives. Neurologic: He had no focal neurological deficits. Psychiatric: He was alert and oriented and knows what he wants to do. SOCIAL HISTORY: He is a former smoker, does not smoke now. He does not drink alcohol. MEDICATIONS: Prednisone 10 daily that he has been taking periodically, amlodipine 10 mg daily, aspirin 81 daily, furosemide 40 daily, Tylenol with codeine 1 q.8 p.r.n., Uloric 40 daily, nebivolol (Bystolic) 20 daily. PHYSICAL EXAMINATION: VITAL SIGNS: At the time of admission, his temperature was 98, pulse 104, respirations 20, blood pressure 138/76, O2 saturation was 97%. HEENT: Head was normocephalic. Nares patent. Oropharynx negative. NECK: Supple with bounding carotids. There is no obvious JVD. Trachea was midline. No thyromegaly. CHEST: He had bilateral clear breath sounds. CARDIOVASCULAR: He had regular rhythm and rate. No murmurs, gallops, clicks or rubs. ABDOMEN: Soft. No hepatosplenomegaly. No CVA tenderness. EXTREMITIES: Warm, erythematous shins with some fissuring. Pulses were faintly palpable. NEUROLOGICAL: Intact. ADMITTING DIAGNOSIS: Cough with some shortness of breath with no enlargement. Sternal wires were present. Vessels were not distended. No infiltrates. No effusion. Right granuloma. Stable chest otherwise. EKG showed atrial fibrillation, controlled rate, with a right bundle branch block. Labs as previously stated. He was placed in the hospital, and he was placed on vancomycin per Pharmacy for the cellulitic kind of changes in his lower extremities and continued on his medications, Bystolic, daily prednisone, Apresoline, Lasix 40 daily, Uloric, doxepin, and amlodipine. cc: Fransico Stover MD
--- NOTE | 2019-06-13 12:23 | PROGRESS NOTE ---
DATE: 06/09/2019 The patient had been seen by Dr. Muir in reference to his heart disease. He felt like the patient had disease. His cardiovascular echocardiogram showed that he had some paroxysmal atrial fibrillation, off and on converting in the hospital. His GFR was 15 mL. He felt that he had some cellulitis of skin but not significant. His imaging reports on 06/09/2019 showed that the chest x- ray, comparatively speaking to 06/08/2019, showed that there was continued cardiomegaly with median sternotomy wires, increasing vascular congestion and basilar edema compared to previous day, particularly within the left lower lobe. Small bilateral effusions. His output has been not very significant. He does not have significant response to the Lasix. We repeated his CK, and it was 235, index was 3.7. MB band was 8.72. His BUN was 95, creatinine 3. His sodium was 137, potassium 4.8, chloride 103, carbon dioxide 12. His BNP was 30,000. The patient has continued to do a little better with respiratory help as far as breathing better, resting on a BiPAP. No significant change. Wounds to the legs seem to be better. cc: Fransico Stover MD
--- NOTE | 2019-06-13 12:26 | PROGRESS NOTE ---
DATE: 06/10/2019 This patient presented on 06/10/2019 with a temperature of 97.8, pulse of 60, respiratory rate 22, blood pressure 122/45, O2 saturation was 100% on BiPAP. Oxygen flow rate was 40. His labs on 06/10/2019 showed sodium was 141, potassium 4.2, chloride 107, CO2 was 16, BUN was 95, creatinine 3.3, estimated GFR of 18, BUN to creatinine ratio of 29, glucose 148, calcium 7.7. Albumin is 3.1. Troponin is 4.9. He has persistent elevation of his troponin to 0.343. CK was 306. The index was 3.1. CBC showed white count 14,180, hematocrit is 28, platelet count 195 with a normal differential. He has edema now on his shins and his hands and arms. He still is alert and oriented, recognizing me, knowing what he is in the hospital for. Still kind of lingering between how to intervene, whether with aggressive therapy or no dialysis. The patient seems to want not to be dialyzed. We are trying to explain that we may dialyze him temporarily just to get him back on his feet and see how he does. We are in the process of discussing that with his son. cc: Fransico Stover MD
--- NOTE | 2019-06-13 12:38 | PROGRESS NOTE ---
DATE: 06/12/2019 SUBJECTIVE: This is a patient upstairs with end stage renal disease, heart failure. His chest x- ray today shows poor inspiration. Heart mildly enlarged. Heart valves have been replaced. There are small pleural effusions with basilar atelectasis. There could be possibly an underlying infiltrate. OBJECTIVE: Vital signs: Temperature 97, pulse was 70, respiratory rate 22, blood pressure 118/88, O2 saturation was 100% on 4 L. DIAGNOSTIC DATA: On 06/12/2019, white count was 11,730, hematocrit 28.8, platelet count 202. Chemistries showed sodium 140, potassium 4.1, CO2 was 18, chloride 105, BUN was 106, creatinine 3.9. Phosphorus 6.3. Calcium 8.2. His albumin is 3.8. He is tired. He has significantly more edema. His shins look okay. We are debating on whether just to do Hospice care or try one last effort to get him on dialysis. He has a son that is coming to see him. They had not seen him, I think, in a while. I have talked to Nephrology, and they are onboard. We just have to convince the patient otherwise. cc: Fransico Stover MD
--- NOTE | 2019-06-13 14:36 | Diag Imaging Result Doc PS360 ---
EXAM: CHEST-PORTABLE HISTORY: pulm edema TECHNIQUE: Portable chest COMPARISON: 06/12/2019 FINDINGS: Poor inspiratory effort. Small pleural effusions. There is basilar atelectasis and there may be underlying infiltrates. Heart is borderline mildly prominent. Sternal wires are present and a heart valve has been replaced. IMPRESSION: No interval improvement. Electronically signed by Mele Parrish 06/13/2019 2:34 PM
[2019-06-13] MEDS ORDERED: TRANSDERM-SCOP TD SCH (17:45)
--- NOTE | 2019-06-13 18:43 | PROGRESS NOTE ---
DATE: 06/13/2019 SUBJECTIVE: An 88-year old patient of mine with ischemic heart disease, valve replacement, renal failure, prostate cancer, gout, among other things who has progressively had a decline in his renal functioning, both clearing out BUN and creatinine and getting rid of body fluids. We have talked to him and Nephrology and hospice and we have all come to the conclusion that Mr. Hoyos has chosen not to pursue any type of dialysis whether it is temporary or permanent. He prefers to be just treated symptomatically and is considering going home with hospice. cc: Fransico Stover MD
[2019-06-13] MEDS: SINEQUAN PO SCH (20:27)
[2019-06-13] MEDS: TUSSIONEX LIQUID PO PRN (22:40)
[2019-06-14] MEDS: MORPHINE IV PRN ×9 (00:47→23:56)
[2019-06-14] MEDS: DEMEROL IV PRN ×2 (01:49→14:52)
[2019-06-14] MEDS: DUONEB (A & A) INH SCH ×3 (03:45→18:21)
[2019-06-14 06:30] LABS: HEMATOCRIT 29.3 % (42.0-52.0); HEMOGLOBIN 9.4 g/dL (14.0-18.0); MCH 28.6 PG (27-31); MCHC 32.1 g/dL (33-37); MCV 89.1 FL (81-99); MPV 11.2 FL (7.4-10.4); RBC 3.29 XMIL (4.7-6.1); RDW 14.7 % (11.5-14.5); WBC 12.76 X1000 (4.8-10.8)
[2019-06-14 06:52] LABS: ALBUMIN 3.7 g/dL (3.5-5.0); CALCIUM 8.1 mg/dL (8.8-10.2); CREATININE 4.4 mg/dL (0.7-1.2); PHOSPHORUS 6.6 mg/dL (2.7-4.5); POTASSIUM 4.3 mmol/L (3.5-5.1)
[2019-06-14] MEDS ORDERED: VANCOMYCIN 1,350 MG in NS 250 ML IV SCH (09:00)
--- NOTE | 2019-06-14 10:27 | NEPHROLOGY PROGRESS NOTE ---
DATE: 06/14/2019 SUBJECTIVE: He is sitting up on the side of the bed and his son is supporting him. He is mumbling inaudibly. OBJECTIVE: Vital Signs: Blood pressure 112/53, heart rate 68, respirations 28, afebrile. Intake 600 mL. Output 400 mL. General: Chronically ill, sitting erect, short of breath. Skin: Warm, dry, thin, multiple bruises and skin tears. HEENT: Conjunctivae pink. Pupils are equal. Neck: Neck veins are not appreciated in the erect position. Heart: Regular. No gallops. Lungs: Equal with crackles and rhonchi throughout. Abdomen: Soft, nontender. Bowel sounds present. Extremities: 2+ edema. No clubbing or cyanosis. IMPRESSION: Decompensated heart failure despite aggressive diuretic therapy and rising BUN and creatinine. I agree that he has reached the limits of medical therapy. He has consistently declined dialysis. As such, I agree that changing focus to symptom management. It is appropriate. Nothing else to add. cc: MD Fransico Menjivar MD [facility]
[2019-06-14] MEDS ORDERED: ATIVAN ONE (11:03)
[2019-06-14] MEDS: ATIVAN IV PRN ×4 (11:09→22:17)
[2019-06-15] MEDS: ATIVAN IV PRN (02:02)
[2019-06-15] MEDS: MORPHINE IV PRN (02:29)
[2019-06-15] MEDS: ATROPINE 1 % OPHTH SOLN SL PRN ×3 (04:43→13:35)
[2019-06-15] MEDS: ROXANOL CONC. LIQUID PO PRN ×6 (04:43→15:25)
[2019-06-15 07:31] VITALS: BP 121/50
[2019-06-15] MEDS: DUONEB (A & A) INH PRN ×2 (07:38→11:10)
[2019-06-15] MEDS: LORAZEPAM ORAL CONCENTRATE PO PRN ×2 (11:14→15:26)
[2019-06-15] MEDS ORDERED: CALMOSEPTINE OINTMENT TOP PRN (14:12)
--- NOTE | 2019-07-22 15:35 | DISCHARGE SUMMARY ---
ADMISSION DATE: 06/08/2019 DISCHARGE DATE: 06/15/2019 He had multiple medical problems when he presented to the Emergency Room. He has a history of ischemic heart disease, he has had a valve replacement and renal failure, prostate cancer, and gout among other things who has progressively had a decline in his renal function. He has been seen by nephrology and they have not pursued dialysis. We talked to the family and to the patient. The patient was most definite on not wanting to be resuscitated and not wanting to be dialyzed. The family agreed. We called and consulted with them several times and he continued to think that way. We tried to balance his water balance but it inexorable declined. He became less responsive and subsequently . cc: Fransico Stover MD
== END 2019-06-15 16:23 | disposition expired ==
LOC: P.ED 18:24 → P.MEDSURG 21:51
PROVIDERS: ADMIT Internal Medicine; ATTEND Internal Medicine